=== PATIENT | male | born 1985 | race Caucasian/White ===

== ENCOUNTER 2023-09-26 11:32 | Inpatient (IN) ==
--- NOTE | 2023-09-26 11:46 | ED Triage Note ---
Date of Service September 26, 2023 History of Present Illness This patient was briefly evaluated while in triage. An abbreviated physical exam was performed. This patient is a 38-year-old Male who presents to the ED for evaluation of productive cough. Patient reports that he had pneumonia a little over a month ago, and was seen in our emergency department on 07/30/2023. The patient completed his course of antibiotics from his last visit. Physical Exam CONSTITUTIONAL: Healthy and well nourished. Patient does not appear toxic. RESPIRATORY: Patient has coarse rhonchi throughout all osorio. No wheezing. CARDIOVASCULAR: Regular rate and rhythm with no murmurs, rubs or gallops. INTEGUMENTARY: No rash or other significant dermatologic conditions noted. HEMATOLOGIC: No ecchymosis or petechiae. PSYCHIATRIC: Positive affect. NEUROLOGIC: No focal neurologic deficits noted. Initial orders for labs and / or imaging were placed and patient was placed in the waiting area until a bed is available. Please see further documentation for the full ED course.
[2023-09-26] MEDS ORDERED: SODIUM CHLORIDE 0.9% 1,000 ML IV SCH (12:00)
[2023-09-26] MEDS ORDERED: VANCOMYCIN CONSULT ACTIVE PRN (12:19)
[2023-09-26] MEDS ORDERED: PIPERACILLIN/TAZOBACTAM 4.5 GM in DEXTROSE 5% MINI-B 100 ML IV ONE (12:19)
[2023-09-26] MEDS ORDERED: VANCOMYCIN HCL 2,000 MG in SODIUM CHLORIDE 0.9% 500 ML IV ONE (12:19)
[2023-09-26 12:47] LABS: Hematocrit (blood only) 35.9 % (42.0-52.0); Hemoglobin 11.3 g/dl (14.0-18.0); Mean Corpuscular Hemoglobin 26.3 pg (25.0-34.0); Mean Corpuscular Hgb Conc 31.5 g/dL (32.0-36.0); Mean Corpuscular Volume 83.7 fL (80.0-100.0); Mean Platelet Volume 9.4 fL (9.4-12.4); Platelet Count 307 K/uL (130-400); RDW Standard Deviation 51.7 fL (36.4-46.3); Red Blood Count 4.29 M/uL (4.70-6.10)
[2023-09-26 12:56] LABS: Albumin Globulin Ratio 0.6 (0.9-2); Albumin Level 3.1 gm/dl (3.4-5.0); BUN Creatinine Ratio 10.5 (10-20); Bilirubin,Total 0.5 mg/dl (0.2-1.0); Calcium 8.7 mg/dl (8.6-10.3); Creatinine Clr Calc Pharmacy 209.1 ml/min; Est GFR (African American) 148.9 ml/min; Est GFR (Non-African American) 128.4 ml/min; Globulin 4.8 gm/dl (2.5-4.0); Potassium 3.4 mmol/L (3.5-5.1); Total Protein 7.9 gm/dl (6.0-8.3)
[2023-09-26] MEDS ORDERED: SODIUM CHLORIDE 0.9% 1,000 ML IV ONE (13:02)
[2023-09-26 13:03] LABS: Troponin I High Sensitivity 5.5 pg/ml (0-20)
[2023-09-26] MEDS ORDERED: OPTIRAY 320 125ml IV ONE (13:15)
[2023-09-26 13:17] LABS: Basophils # (auto) 0.05 K/uL (0.00-0.20); Basophils % (auto) 0.5 %; Eosinophils # (auto) 0.03 K/uL (0.00-0.50); Eosinophils % (auto) 0.3 %; Immature Granulocytes # (auto) 0.06 K/uL (0.01-0.20); Immature Granulocytes % (auto) 0.6 %; Lymphocytes # (auto) 1.56 K/uL (1.20-3.40); Lymphocytes % (auto) 16.8 %; Monocytes # (auto) 1.49 K/uL (0.11-0.59); Neutrophils # (auto) 6.11 K/uL (1.40-6.50); Neutrophils % (auto) 65.8 %
--- NOTE | 2023-09-26 13:22 | XRay Report ---
XR chest 2V PA/lateral HISTORY: Cough, pneumonia 2 mos ago COMPARISON: Chest 07/30/2023. FINDINGS: The right lung is clear. The heart is normal in size. Loculated gas and fluid collection se en within the periphery of the left mid to lower lung zone. This favors a moderate to large loculated hydropneumothorax/empyema. Left basilar consolidation is noted. This could represent a pneumonia or atelectasis from the loculated pleural collection. No acute fractures identified. IMPRESSION: Loculated gas and fluid collection seen within the periphery of the left mid to lower lung zone. This favors a moderate to large loculated hydropneumothorax/empyema. ACT 112: Negative or not required by law. Electronically signed by: Cecilio Linton M.D. 09/26/2023 1:21 PM
--- NOTE | 2023-09-26 13:33 | CT Scan Report ---
CHEST CTA for PULMONARY ARTERIES CT DOSE: 1067.14 mGy.cm HISTORY: Shortness of breath, tachy, left cavitary pneumonia? TECHNIQUE: Multiaxial CT images of the chest were performed following the intravenous administration of contrast to evaluate the pulmonary arteries. 3D/Maximal intensity projection images were also obta ined. Sagittal and coronal reformations were also reviewed. A dose lowering technique was utilized a dhering to the principles of ALARA. COMPARISON STUDY: Chest 09/26/2023. FINDINGS: No acute fractures within the chest. Mild anterior wedging at T11 is likely chronic. There is an old, healed right clavicle fracture. No bony destructive changes identified. There is a 2.2 cm cyst/nodule along the inferior aspect of the left thyroid lobe. This is best seen on image 245. Robina l esophagus. Limited views of the upper abdomen demonstrate a normal liver, spleen, and adrenal gland s. There is mild right mediastinal shift. The heart is normal in size. No pericardial effusion. No ri ght pleural effusion is. A few prominent mediastinal and left hilar lymph nodes. These remain subcent imeter in short axis diameter. These are likely reactive. Normal caliber thoracic aorta with no evide nce for a dissection. No filling defects within the pulmonary arteries to suggest a pulmonary embolus . Partial opacities of the left lower lobe bronchi. There is mild emphysema. There are tree-in-bud no dular opacities seen within the right middle lobe and right lower lobe consistent with an infectious bronchiolitis. There is consolidation within the base of the left lower lobe and lingula. This likely represents a combination of compressive atelectasis and a pneumonia. Loculated peripheral gas and fl uid collection within the mid to lower left pleural space. The left pleural lining is thickened. Ther efore, this is consistent with a loculated moderate to large empyema. There are additional smaller co mponents of loculated gas and fluid within the left upper pleural space also suspicious for an empyem a. This accounts for the mild right mediastinal shift. IMPRESSION: 1. Moderate to large loculated gas and fluid collection within the left pleural space which is highly suspicious for an empyema. 2. Consolidation within the base of the left lower lobe/lingula. This likely represents a combination of compressive atelectasis from the suspected empyema and a superimposed pneumonia. 3. Tree-in-bud nodular opacities within the right lung base consistent with a mild infectious bronchi olitis. 4. No evidence for a pulmonary embolus. 5. Mild right mediastinal shift from the left-sided empyema. 6. Additional findings as described above. ACT 112: Negative or not required by law. Electronically signed by: Cecilio Linton M.D. 09/26/2023 1:31 PM
[2023-09-26 13:41] LABS: Adenovirus PCR Not Detected (NotDetected); Bordetella parapertussis PCR Not Detected (NotDetected); Bordetella pertussis PCR Not Detected (NotDetected); Chlamydia pneumoniae PCR Not Detected (NotDetected); Coronavirus 229E PCR Not Detected (NotDetected); Coronavirus CoV-2 (COVID19)PCR Not Detected (NotDetected); Coronavirus HKU1 PCR Not Detected (NotDetected); Coronavirus NL63 PCR Not Detected (NotDetected); Coronavirus OC43PCR Not Detected (NotDetected); Human Metapneumovirus PCR Not Detected (NotDetected); Influenza A PCR Not Detected (NotDetected); Influenza B PCR Not Detected (NotDetected); Mycoplasma pneumoniae PCR Not Detected (NotDetected); Parainfluenza Virus 1 PCR Not Detected (NotDetected); Parainfluenza Virus 2 PCR Not Detected (NotDetected); Parainfluenza Virus 3 PCR Not Detected (NotDetected); Parainfluenza Virus 4 PCR Not Detected (NotDetected); Respiratory Syncytial VirusPCR Not Detected (NotDetected); Rhinovirus/Enterovirus PCR Not Detected (NotDetected)
--- NOTE | 2023-09-26 15:04 | History & Physical Report ---
Date of Service September 26, 2023 Assessment & Plan (1) Empyema: Plan: IV Zosyn Follow up sputum, pleural fluid and blood cultures Appreciate pulmonology management of chest tube (2) Smoker: Plan: Nicotine patch ordered Plan VTE Prophylaxis - deferred given chest tube just inserted Diet - regular Disposition - admit to med/tele Admission and Anticipated Discharge Date Admission Date: September 26, 2023 History of Present Illness Chief Complaint: Cough, shortness of breath Primary Care Provider: Anu Geiger MD Cheo [place] is a 38 year old male who presents to the ER with productive cough. He was recently seen in the ER on July 30 and diagnosed with pneumonia. He was treated with prednisone (5 day course) and albuterol inhaler as wheezing was noted on exam. Given doxycycline on discharge. He reports once finishing his antibiotics his symptoms came back the next day with worsening cough and shortness of breath on exertion. No chest pain, fever or chills. No nasal congestion or sinus pain. He is a current smoking with 1 pack/day. Patient initially seen in the ER while having chest tube inserted, reviewed and examined patient fully after chest tube insertion by pulmonology. Allergies Allergy/AdvReac Type Severity Reaction Status Date / Time No Known Allergies Allergy Verified 09/26/23 14:09 Home Medications Medication Instructions Recorded Confirmed Type albuterol sulfate 90 mcg/actuation 2 inha inhalation QID PRN 07/30/23 09/26/23 Rx aerosol inhaler shortness of breath or wheezing #1 inhaler ibuprofen 200 mg tablet 200 mg PO Q6H PRN Pain 09/26/23 09/26/23 History Past Med/Surg History Medical History Gout Surgical History No history of previous surgery Family History Denies family history of Ovarian cancer Prostate cancer Myocardial infarction Breast cancer Colorectal cancer Social History Smoking Status: Current every day smoker packs per day: 1.5; Hx Alcohol Use: No Hx Substance Use: Yes Last Used Substance: Days (ago) Preferred Language: Telugu Communication Ability: Effective Motivational Speaker Required: No Beliefs That Will Affect Care: None marital status: Single Current Living Situation: Alone current occupational status: employed Other Information That Helps Us Care for You: No Feels Safe at Home: Yes Safety Concerns: Feels Safe At This Time Dental Care, Regularly: No Seatbelt Use: sometimes Assistive Devices: None Review of Systems Review of Systems: All systems reviewed & are unremarkable except as noted in HPI & below Physical Exam Constitutional: WD/WN, vitals as above Eyes: + anicteric sclerae; normal pupil size ENMT: external ear and nose normal, oropharynx normal Neck: trachea midline, no thyromegaly Respiratory: normal respiratory effort; no respiratory distress Auscultation: + diminished lung sounds (right sided); no crackles and no wheezes Cardiovascular: RRR, no murmur, no edema Gastrointestinal (Abdomen): normal bowel sounds, soft, nontender, no hepatosplenomegaly Musculoskeletal: no cyanosis or clubbing, extremities motor strength 5/5 Skin: no rashes, warm and dry Neurologic: moves all extremities and awake; not confused Psychiatric: A+Ox3, euthymic affect Genitourinary: no CVA tenderness Results & Data Results & Data Vital Signs (Past 12 Hours) Vital Signs Temp Pulse Pulse Resp BP BP Pulse Ox 09/26/23 12:09 126 H 12 92 09/26/23 12:09 126 H 14 107/78 92 09/26/23 11:44 37.2 C 133 H 18 127/81 94 O2 Del Method 09/26/23 12:09 Room Air 09/26/23 12:09 Room Air 09/26/23 11:44 Room Air Laboratory Results Abnormal lab results 09/26/23 09/26/23 Range/Units 12:13 12:27 RBC 4.29 L (4.70-6.10) M/uL Hgb 11.3 L (14.0-18.0) g/dl Hct 35.9 L (42.0-52.0) % MCHC 31.5 L (32.0-36.0) g/dL RDW Std Deviation 51.7 H (36.4-46.3) fL RDW Coeff of [place] 17.0 H (11.5-14.5) % [place] # (Auto) 1.49 H (0.11-0.59) K/uL Sodium 132 L (136-145) mmol/L Potassium 3.4 L (3.5-5.1) mmol/L Chloride 97 L (98-107) mmol/L Creatinine 0.57 L (0.6-1.4) mg/dl Glucose 159 H (70-99(Fasting)) mg/dl Lactate 2.4 H* (0.4-2.0) mmol/L Albumin 3.1 L (3.4-5.0) gm/dl Globulin 4.8 H (2.5-4.0) gm/dl Albumin/Globulin Ratio 0.6 L (0.9-2) Diagnostic Findings XR chest 2V PA/lateral HISTORY: Cough, pneumonia 2 mos ago COMPARISON: Chest 07/30/2023. FINDINGS: The right lung is clear. The heart is normal in size. Loculated gas and fluid collection seen within the periphery of the left mid to lower lung zone. This favors a moderate to large loculated hydropneumothorax/empyema. Left basilar consolidation is noted. This could represent a pneumonia or atelectasis from the loculated pleural collection. No acute fractures identified. IMPRESSION: Loculated gas and fluid collection seen within the periphery of the left mid to lower lung zone. This favors a moderate to large loculated hydropneumothorax/empyema. CHEST CTA for PULMONARY ARTERIES CT DOSE: 1067.14 mGy.cm HISTORY: Shortness of breath, tachy, left cavitary pneumonia? TECHNIQUE: Multiaxial CT images of the chest were performed following the intravenous administration of contrast to evaluate the pulmonary arteries. 3D/ Maximal intensity projection images were also obtained. Sagittal and coronal reformations were also reviewed. A dose lowering technique was utilized adhering to the principles of ALARA. COMPARISON STUDY: Chest 09/26/2023. FINDINGS: No acute fractures within the chest. Mild anterior wedging at T11 is likely chronic. There is an old, healed right clavicle fracture. No bony destructive changes identified. There is a 2.2 cm cyst/nodule along the inferior aspect of the left thyroid lobe. This is best seen on image 245. Normal esophagus. Limited views of the upper abdomen demonstrate a normal liver, spleen, and adrenal glands. There is mild right mediastinal shift. The heart is normal in size. No pericardial effusion. No right pleural effusion is. A few prominent mediastinal and left hilar lymph nodes. These remain subcentimeter in short axis diameter. These are likely reactive. Normal caliber thoracic aorta with no evidence for a dissection. No filling defects within the pulmonary arteries to suggest a pulmonary embolus. Partial opacities of the left lower lobe bronchi. There is mild emphysema. There are tree-in-bud nodular opacities seen within the right middle lobe and right lower lobe consistent with an infectious bronchiolitis. There is consolidation within the base of the left lower lobe and lingula. This likely represents a combination of compressive atelectasis and a pneumonia. Loculated peripheral gas and fluid collection within the mid to lower left pleural space. The left pleural lining is thickened. Therefore, this is consistent with a loculated moderate to large e mpyema. There are additional smaller components of loculated gas and fluid within the left upper pleural space also suspicious for an empyema. This accounts for the mild right mediastinal shift. IMPRESSION: 1. Moderate to large loculated gas and fluid collection within the left pleural space which is highly suspicious for an empyema. 2. Consolidation within the base of the left lower lobe/lingula. This likely represents a combination of compressive atelectasis from the suspected empyema and a superimposed pneumonia. 3. Tree-in-bud nodular opacities within the right lung base consistent with a mild infectious bronchiolitis. 4. No evidence for a pulmonary embolus. 5. Mild right mediastinal shift from the left-sided empyema. 6. Additional findings as described above. Medications Administered ER Medications Given: Normal saline 1000 ml bolus Zosyn 4.5g IV Vancomycin 2000mg IV Normal saline 1000ml bolus ECG Rate (beats per minute): 131 Rhythm: sinus tachycardia Findings: + T-wave inversion (Lateral) Comparison ECG Date: from (July 30, 2023) Change: the following changes noted (TWI is new) Code Status & VTE Plan Code Status Full VTE Prophylaxis Plan VTE Prophylaxis will be ordered: No PG Care Time/CCT Total # of Minutes Spent Total Time Spent with Patient: Total time spent is greater than 50% in coordination of care (as documented) at patient's floor/unit and/or counseling patient: Coding Level of Care Code 13031 INT INP/OBS CARE 2/55MIN Diagnoses Empyema J86.9 Smoker F17.200
[2023-09-26] MEDS ORDERED: MIDAZOLAM HCL 1 MG/ML 2ML VIAL IV STA (15:06)
[2023-09-26] MEDS ORDERED: MoRPHine SULFATE 2 MG/ML CARP IV STA (15:06)
[2023-09-26] MEDS ORDERED: MoRPHine SULFATE 2 MG/ML CARP ONE (15:10)
[2023-09-26] MEDS ORDERED: MIDAZOLAM HCL 1 MG/ML 2ML VIAL ONE (15:10)
[2023-09-26 15:21] LABS: C Reactive Protein 10.51 mg/dl (0-0.5)
[2023-09-26] MEDS ORDERED: SODIUM CHLORIDE 0.9% 500 ML IV ONE (15:48)
--- NOTE | 2023-09-26 15:57 | Emergency Department Note ---
Impression & Plan Empyema, Sepsis ED Provider Note NAME: LAUREN ACEVEDO AGE: 38 SEX: Male INFORMANT: Patient ED PROVIDER(S): Froy Bustillo MD CHIEF COMPLAINT: Cough PLAN: Disposition: Admitted Outpatient prescription management: none Referral: None MEDICAL DECISION MAKING: Patient presented because of cough. Work-up revealed an air-fluid level on chest x-ray. This was concerning for possible cavitary lesion. The patient was placed in respiratory precautions. Blood work, cultures, and other laboratory testing ordered. Patient was given fluid boluses and started empirically on Zosyn and vancomycin. Patient had fluid calculation based on ideal body weight and did receive 2.5 L patient did have a sputum specimen sent. CT imaging was ordered. CT imaging appeared to reveal this to be pleural-based. I did consult with pulmonary critical care, Dr. Bharat chun. She did evaluate the patient in the emergency department after CT imaging and placed a chest tube. Patient initially drained approximate 500 mL of purulent fluid. The patient did have a moderate anemia with a hemoglobin that dropped from 15-11. Chemistry panel was unremarkable. He did have a negative white blood cell count. The patient's ECG showed a sinus tachycardia with lateral T wave inversions. Troponin negative. Patient's CRP is elevated. Procalcitonin is within normal limits. Patient's bio fire testing is negative. Further management in the hospital will be necessary. [facility] Dr[facility] Kulkarni. Patient was discussed and he will be admitted for further management. Care/management discussed with: Discussed with sponsorship manager. Level of care consideration(s): After review of the information above and other included data, I feel the patient requires escalation of care to admission Triage Nursing notes: reviewed and agree them. Vital Signs: reviewed and remarkable for no significant abnormalities Additional History obtained from: Patient's mother regarding his persistent pulmonary symptoms. Chronic Medical/Social Conditions affecting care: none Prior/ Outside/ External records reviewed: none Differential Diagnosis: Reactive airway disease, pneumonia, pneumothorax, COPD, CHF, infections, cardiac ischemia, pulmonary embolism, musculoskeletal, gastrointestinal, as well as other pathologies. Diagnostics, independently interpreted by me: ECG: Twelve-lead ECG reveals sinus tachycardia at 131 bpm. Septal Q wave. Lateral T wave inversion. When compared to prior ECG from July this year the T wave inversions are new. Cardiac Monitoring: Cardiac monitoring ordered by me: The patient was placed on continuous cardiac monitoring and observed. It revealed sinus tachycardia at 120 bpm. Medical decision rules: none Imaging studies: Chest imaging reveals a left sided cavitary lesion with air- fluid level. CT imaging of the chest reveals findings consistent with a pleural-based layering fluid collection concerning for empyema. Patient may have infiltrate versus atelectasis secondary to compression as well HPI: 38 year old Male arrives for evaluation of cough. Patient was treated for pneumonia back in July of this year. He stated when he was on the doxycycline he was feeling somewhat better and then symptoms persisted. They seem to get worse over the last week or 2.. Patient has a productive cough. He notes some difficulty sleeping and feels somewhat short of breath. Patient denies any travel or exposure to anyone ill. No prior history of the same. Patient does smoke. He is also noted some fevers and chills pt denies LOC, headache, neck pain, chest pain, nausea, vomiting, abdominal pain, back pain, melena, hematochezia, urinary symptoms, numbness, weakness, lymphadenopathy, rash, or other complaints. PAST MEDICAL HISTORY: See Below, pneumonia PAST SURGICAL HISTORY: See Below, SOCIAL HISTORY: See Below, smoker HOME MEDICATIONS: See Below ALLERGIES: See Below VITALS: See Below PHYSICAL EXAMINATION: GENERAL: Awake, alert, well-appearing, in no distress HENT: Normocephalic, atraumatic. Oropharynx unremarkable. EYES: Normal conjunctiva. Sclera non-icteric. NECK: Inspection normal. Non-tender. Supple. No nuchal rigidity. FROM. No masses. RESPIRATORY: Clear to auscultation on the right without any wheezes rales. Auscultation on the left side revealed diminished breath sounds mcfp up. Few scattered crackles noted. Slightly increased respiratory effort. CARDIAC: Normal rate. Normal rhythm. No murmurs. No rubs. Extremities warm and well perfused. Pulses equal. No JVD. GI: Soft, non-distended. No tenderness to palpation. No rebound or guarding. No masses. RECTAL: Deferred. MUSCULOSKELETAL: Atraumatic. Chest examination reveals no tenderness. The back is symmetrical on inspection without obvious abnormality. There is no CVA tenderness to palpation. No joint edema. LOWER EXTREMITIES: Calves are equal size bilaterally and non-tender. No edema. Chronic venous discoloration. NEURO: Normal sensorium. No sensory or motor deficits noted. SKIN: No rash or jaundice noted. PROCEDURES: none CRITICAL CARE: I have personally spent 45 minutes of critical care time in the direct management of this patient. This includes bedside care, interpretation of diagnostic studies, and testing, discussion with consultants, patient, and family members, and other required patient management activities. These minutes are in excess of all separately billable procedures. OBSERVATION NOTE: none Past Med/Surg History Medical History (Updated 09/26/23 @ 15:57 by Froy Bustillo MD) Gout Surgical History No history of previous surgery Family History Denies family history of Ovarian cancer Prostate cancer Myocardial infarction Breast cancer Colorectal cancer Social History Smoking Status: Current every day smoker packs per day: 1.5; Hx Alcohol Use: Yes Hx Substance Use: No Preferred Language: Mauritanian marital status: Single Current Living Situation: Alone current occupational status: employed Feels Safe at Home: Yes Dental Care, Regularly: No Seatbelt Use: sometimes Allergies Allergies Allergy/AdvReac Type Severity Reaction Status Date / Time No Known Allergies Allergy Verified 09/26/23 14:09 Home Meds Home Medications Medication Instructions Recorded Confirmed ibuprofen 200 mg tablet 200 mg PO Q6H PRN Pain 09/26/23 09/26/23 Previous Rx's Medication Instructions Recorded albuterol sulfate 90 mcg/actuation 2 inha inhalation QID PRN 07/30/23 aerosol inhaler shortness of breath or wheezing #1 inhaler Results & Data (ED) Vital Signs Vital Signs - 24 hr 09/26/23 11:44 09/26/23 12:09 09/26/23 12:09 Temperature 37.2 C Temperature Source Temporal Artery Scan Pulse Rate 133 H 126 H Pulse Rate [Right Finger] 126 H Respiratory Rate 18 14 12 Respiratory Effort / Characteristics Non-Labored Spontaneous Respiratory Depth Normal Respiratory Pattern Regular Blood Pressure 127/81 Blood Pressure [Right Arm] 107/78 Blood Pressure Mean 96 Blood Pressure Mean [Right Arm] 87 Blood Pressure Position Sitting Pulse Oximetry 94 92 92 Oxygen Delivery Method Room Air Room Air Room Air Sepsis Recent Fever Within 48 Hours No Sepsis New/Unexplained Change in Mental Status N/A Sepsis Action Taken by Nursing No Action Required Laboratory Data 09/26/23 12:13 09/26/23 12:13 Lab Results 09/26/23 09/26/23 09/26/23 Range/Units 12:13 12:22 12:27 WBC 9.30 (4.8-10.8) K/ul RBC 4.29 L (4.70-6.10) M/uL Hgb 11.3 L (14.0-18.0) g/dl Hct 35.9 L (42.0-52.0) % MCV 83.7 (80.0-100.0) fL MCH 26.3 (25.0-34.0) pg MCHC 31.5 L (32.0-36.0) g/dL RDW Std Deviation 51.7 H (36.4-46.3) fL RDW Coeff of Logan 17.0 H (11.5-14.5) % Plt Count 307 (130-400) K/uL MPV 9.4 (9.4-12.4) fL Immature Gran % (Auto) 0.6 % Neut % (Auto) 65.8 % Lymph % (Auto) 16.8 % [place] % (Auto) 16.0 % Eos % (Auto) 0.3 % Baso % (Auto) 0.5 % Neut # (Auto) 6.11 (1.40-6.50) K/uL Lymph # (Auto) 1.56 (1.20-3.40) K/uL [place] # (Auto) 1.49 H (0.11-0.59) K/uL Eos # (Auto) 0.03 (0.00-0.50) K/uL Baso # (Auto) 0.05 (0.00-0.20) K/uL Immature Gran # (Auto) 0.06 (0.01-0.20) K/uL ESR 96 H (0-15) mm/hr Sodium 132 L (136-145) mmol/L Potassium 3.4 L (3.5-5.1) mmol/L Chloride 97 L (98-107) mmol/L Carbon Dioxide 26 (21-32) mmol/L Anion Gap 9 (3-11) BUN 6 (6-23) mg/dl Creatinine 0.57 L (0.6-1.4) mg/dl Est Cr Clr Drug Dosing 209.1 ml/min Est GFR ( Amer) 148.9 ml/min Est GFR (Non-Af Amer) 128.4 ml/min BUN/Creatinine Ratio 10.5 (10-20) Glucose 159 H (70-99(Fasting)) mg/dl Lactate 2.4 H* (0.4-2.0) mmol/L Calcium 8.7 (8.6-10.3) mg/dl Total Bilirubin 0.5 (0.2-1.0) mg/dl AST 17 (13-39) U/L ALT 12 (7-52) U/L Alkaline Phosphatase 85 (34-104) U/L Lactate Dehydrogenase 166 (86-244) U/L Troponin I High Sens 5.5 (0-20) pg/ml C-Reactive Protein 10.51 H (0-0.5) mg/dl Total Protein 7.9 (6.0-8.3) gm/dl Albumin 3.1 L (3.4-5.0) gm/dl Globulin 4.8 H (2.5-4.0) gm/dl Albumin/Globulin Ratio 0.6 L (0.9-2) Procalcitonin 0.07 (0-0.5) ng/ml Pleural pH (7.3-7.4) Pleural Total Protein gm/dl Pleural LDH U/L Pleural Glucose mg/dl Adenovirus (PCR) Not Detected (NotDetected) B. pertussis DNA (PCR) Not Detected (NotDetected) B.parapertussis DNA PCR Not Detected (NotDetected) C. pneumoniae DNA (PCR) Not Detected (NotDetected) Coronavirus OC43 (PCR) Not Detected (NotDetected) Coronavirus HKU1 (PCR) Not Detected (NotDetected) Coronavirus 229E (PCR) Not Detected (NotDetected) SARS-CoV-2 (PCR) Not Detected (NotDetected) Coronavirus NL63 (PCR) Not Detected (NotDetected) Human Metapneumovir PCR Not Detected (NotDetected) Influenza Type A (PCR) Not Detected (NotDetected) Influenza Type B (PCR) Not Detected (NotDetected) M. pneumoniae (PCR) Not Detected (NotDetected) Parainfluenza 1 (PCR) Not Detected (NotDetected) Parainfluenza 2 (PCR) Not Detected (NotDetected) Parainfluenza 3 (PCR) Not Detected (NotDetected) Parainfluenza 4 (PCR) Not Detected (NotDetected) RSV (PCR) Not Detected (NotDetected) Entero/Rhino (PCR) Not Detected (NotDetected) 09/26/23 09/26/23 Range/Units 13:40 14:10 WBC (4.8-10.8) K/ul RBC (4.70-6.10) M/uL Hgb (14.0-18.0) g/dl Hct (42.0-52.0) % MCV (80.0-100.0) fL MCH (25.0-34.0) pg MCHC (32.0-36.0) g/dL RDW Std Deviation (36.4-46.3) fL RDW Coeff of Logan (11.5-14.5) % Plt Count (130-400) K/uL MPV (9.4-12.4) fL Immature Gran % (Auto) % Neut % (Auto) % Lymph % (Auto) % [place] % (Auto) % Eos % (Auto) % Baso % (Auto) % Neut # (Auto) (1.40-6.50) K/uL Lymph # (Auto) (1.20-3.40) K/uL [place] # (Auto) (0.11-0.59) K/uL Eos # (Auto) (0.00-0.50) K/uL Baso # (Auto) (0.00-0.20) K/uL Immature Gran # (Auto) (0.01-0.20) K/uL ESR (0-15) mm/hr Sodium (136-145) mmol/L Potassium (3.5-5.1) mmol/L Chloride (98-107) mmol/L Carbon Dioxide (21-32) mmol/L Anion Gap (3-11) BUN (6-23) mg/dl Creatinine (0.6-1.4) mg/dl Est Cr Clr Drug Dosing ml/min Est GFR ( Amer) ml/min Est GFR (Non-Af Amer) ml/min BUN/Creatinine Ratio (10-20) Glucose (70-99(Fasting)) mg/dl Lactate 1.1 (0.4-2.0) mmol/L Calcium (8.6-10.3) mg/dl Total Bilirubin (0.2-1.0) mg/dl AST (13-39) U/L ALT (7-52) U/L Alkaline Phosphatase (34-104) U/L Lactate Dehydrogenase (86-244) U/L Troponin I High Sens (0-20) pg/ml C-Reactive Protein (0-0.5) mg/dl Total Protein (6.0-8.3) gm/dl Albumin (3.4-5.0) gm/dl Globulin (2.5-4.0) gm/dl Albumin/Globulin Ratio (0.9-2) Procalcitonin (0-0.5) ng/ml Pleural pH (7.3-7.4) Pleural Total Protein < 3.0 gm/dl Pleural LDH > 63562 U/L Pleural Glucose < 10 mg/dl Adenovirus (PCR) (NotDetected) B. pertussis DNA (PCR) (NotDetected) B.parapertussis DNA PCR (NotDetected) C. pneumoniae DNA (PCR) (NotDetected) Coronavirus OC43 (PCR) (NotDetected) Coronavirus HKU1 (PCR) (NotDetected) Coronavirus 229E (PCR) (NotDetected) SARS-CoV-2 (PCR) (NotDetected) Coronavirus NL63 (PCR) (NotDetected) Human Metapneumovir PCR (NotDetected) Influenza Type A (PCR) (NotDetected) Influenza Type B (PCR) (NotDetected) M. pneumoniae (PCR) (NotDetected) Parainfluenza 1 (PCR) (NotDetected) Parainfluenza 2 (PCR) (NotDetected) Parainfluenza 3 (PCR) (NotDetected) Parainfluenza 4 (PCR) (NotDetected) RSV (PCR) (NotDetected) Entero/Rhino (PCR) (NotDetected) Administered Medications Discontinued Medications Fentanyl Citrate (Fentanyl Citrate Pf 100 Mcg/2 Ml Vial) 50 mcg IV NOW STA Stop: 09/26/23 16:37 Last Admin: 09/26/23 16:45 Dose: 50 mcg Documented By: LIO Sodium Chloride (Nss) 1,000 mls @ 999 mls/hr IV .Q1H1M JAVDA Stop: 09/26/23 13:00 Last Infusion: 09/26/23 13:26 Dose: Infused Documented By: Admin: 09/26/23 12:13 Dose: 999 mls/hr Documented By: ARCHIE Piperacillin Sod/Tazobactam (Sod 4.5 gm/ Dextrose) 100 mls @ 200 mls/hr IV NOW ONE; Protocol Stop: 09/26/23 12:48 Last Infusion: 09/26/23 13:57 Dose: Infused Documented By: Admin: 09/26/23 13:26 Dose: 200 mls/hr Documented By: JUSTIN Vancomycin HCl 2,000 mg/ (Sodium Chloride) 540 mls @ 200 mls/hr IV NOW ONE Stop: 09/26/23 15:00 Last Infusion: 09/26/23 17:55 Dose: Infused Documented By: [employer]PER[employer] Admin: 09/26/23 14:38 Dose: 200 mls/hr Documented By: JUSTIN Sodium Chloride (Nss) 1,000 mls @ 999 mls/hr IV .Q1H1M ONE Stop: 09/26/23 14:02 Last Infusion: 09/26/23 14:38 Dose: Infused Documented By: Admin: 09/26/23 13:26 Dose: 999 mls/hr Documented By: JUSTIN Sodium Chloride (Nss) 500 mls @ 999 mls/hr IV .Q31M ONE Stop: 09/26/23 16:18 Last Infusion: 09/26/23 17:02 Dose: Infused Documented By: [employer]PER[employer] Admin: 09/26/23 16:26 Dose: 999 mls/hr Documented By: LIO Ioversol (Optiray 320 125ml) 119 ml IV ONCE ONE Stop: 09/26/23 13:16 Last Admin: 09/26/23 13:15 Dose: 119 ml Documented By: DEVYN Midazolam HCl (Midazolam Hcl 1 Mg/Ml 2ml Vial) 1 mg IV NOW STA Stop: 09/26/23 15:07 Last Admin: 09/26/23 15:18 Dose: Not Given Documented By: ROSSY Midazolam HCl (Midazolam Hcl 1 Mg/Ml 2ml Vial) Confirm Administered Dose 2 mg .ROUTE .STK-MED ONE Stop: 09/26/23 15:11 Last Admin: 09/26/23 15:13 Dose: 1 mg Documented By: ROSSY Morphine Sulfate (Morphine Sulfate 2 Mg/Ml Carp) 2 mg IV NOW STA Stop: 09/26/23 15:07 Last Admin: 09/26/23 15:18 Dose: Not Given Documented By: ROSSY Morphine Sulfate (Morphine Sulfate 2 Mg/Ml Carp) Confirm Administered Dose 2 mg .ROUTE .STK-MED ONE Stop: 09/26/23 15:11 Last Admin: 09/26/23 15:13 Dose: 2 mg Documented By: ROSSY Imaging Data Radiologist's Impression: Chest X-Ray 09/26/23 11:46 XR chest 2V PA/lateral HISTORY: Cough, pneumonia 2 mos ago COMPARISON: Chest 07/30/2023. FINDINGS: The right lung is clear. The heart is normal in size. Loculated gas and fluid collection seen within the periphery of the left mid to lower lung zone. This favors a moderate to large loculated hydropneumothorax/empyema. Left basilar consolidation is noted. This could represent a pneumonia or atelectasis from the loculated pleural collection. No acute fractures identified. IMPRESSION: Loculated gas and fluid collection seen within the periphery of the left mid to lower lung zone. This favors a moderate to large loculated hydropneumothorax/empyema. ACT 112: Negative or not required by law. Electronically signed by: Cecilio Linton M.D. 09/26/2023 1:21 PM Chest CTA 09/26/23 12:16 CHEST CTA for PULMONARY ARTERIES CT DOSE: 1067.14 mGy.cm HISTORY: Shortness of breath, tachy, left cavitary pneumonia? TECHNIQUE: Multiaxial CT images of the chest were performed following the intravenous administration of contrast to evaluate the pulmonary arteries. 3D/Maximal intensity projection images were also obtained. Sagittal and coronal reformations were also reviewed. A dose lowering technique was utilized adhering to the principles of ALARA. COMPARISON STUDY: Chest 09/26/2023. FINDINGS: No acute fractures within the chest. Mild anterior wedging at T11 is likely chronic. There is an old, healed right clavicle fracture. No bony destructive changes identified. There is a 2.2 cm cyst/nodule along the inferior aspect of the left thyroid lobe. This is best seen on image 245. Normal esophagus. Limited views of the upper abdomen demonstrate a normal liver, spleen, and adrenal glands. There is mild right mediastinal shift. The heart is normal in size. No pericardial effusion. No right pleural effusion is. A few prominent mediastinal and left hilar lymph nodes. These remain subcentimeter in short axis diameter. These are likely reactive. Normal caliber thoracic aorta with no evidence for a dissection. No filling defects within the pulmonary arteries to suggest a pulmonary embolus. Partial opacities of the left lower lobe bronchi. There is mild emphysema. There are tree-in-bud nodular opacities seen within the right middle lobe and right lower lobe consistent with an infectious bronchiolitis. There is consolidation within the base of the left lower lobe and lingula. This likely represents a combination of compressive atelectasis and a pneumonia. Loculated peripheral gas and fluid collection within the mid to lower left pleural space. The left pleural lining is thickened. Therefore, this is consistent with a loculated moderate to large empyema. There are additional smaller components of loculated gas and fluid within the left upper pleural space also suspicious for an empyema. This accounts for the mild right mediastinal shift. IMPRESSION: 1. Moderate to large loculated gas and fluid collection within the left pleural space which is highly suspicious for an empyema. 2. Consolidation within the base of the left lower lobe/lingula. This likely represents a combination of compressive atelectasis from the suspected empyema and a superimposed pneumonia. 3. Tree-in-bud nodular opacities within the right lung base consistent with a mild infectious bronchiolitis. 4. No evidence for a pulmonary embolus. 5. Mild right mediastinal shift from the left-sided empyema. 6. Additional findings as described above. ACT 112: Negative or not required by law. Electronically signed by: Cecilio Linton M.D. 09/26/2023 1:31 PM Discharge Plan Visit Data Chief Complaint: Cough Stated Complaint: PNEUMONIA A MONTH AGO, ONSET COUGH, CHECK UP ED Provider: Froy Bustillo Discharge Problem: Empyema, Sepsis Discharge Instructions Interventions: ED Discharge Assessment Last Done: 09/26/23 17:30
[2023-09-26] MEDS ORDERED: fentaNYL citrate PF 100 MCG/2 ML VIAL IV STA (16:36)
[2023-09-26 16:48] LABS: Glucose Pleural Fluid < 10 mg/dl; Total Protein Pleural Fluid < 3.0 gm/dl
--- NOTE | 2023-09-26 16:50 | XRay Report ---
XR chest 1V portable CLINICAL HISTORY: left chest tube COMPARISON STUDY: Chest radiograph and chest CT September 26, 2023. FINDINGS: Interval placement of a left chest tube is noted. The left pleural effusion/empyema has dec reased in size since prior examination. Pleural gas is again noted. Left mid and lower lung airspace opacity is present. There is no right pneumothorax. There is no evidence for pulmonary edema. IMPRESSION: Interval placement of a left chest tube with decrease in the left pleural effusion/empye ma shown on prior chest radiograph and chest CT. Redemonstration of left pleural gas. ACT 112: Negative or not required by law. Electronically signed by: Dimitri Irwin M.D. 09/26/2023 4:49 PM
--- NOTE | 2023-09-26 17:12 | Pulmonary Consultation ---
Date of Consultation September 26, 2023 Assessment & Plan (1) Empyema: (2) Smoker: Plan 38 year old male smoker, ETOH use who presents with cough. Treated for pneumonia 2 weeks ago with doxycycline. Found to have left empyema. s/p left chest tube. suspect staph or strep. Agree with empiric vanc and zoxyn. Follow up cultures. check strep urine antigen. post chest tube CXR showed left pneumothorax, suspect entrapped lung. Check follow up chest CT. History of Present Illness History of Present Illness 38 year old male without significant past medical history who presents to the ER with productive cough. He was recently seen in the ER on July 30 and diagnosed with pneumonia, treated with doxycycline, prendisone and albuterol. CXR and Chest CT showed loculated left empyema. He is an active smoker. works in construction. Denies pulmonary issues. Denies recent travel or sick contact. Denies vaping or drug use. (+)etoh use. Allergies Allergy/AdvReac Type Severity Reaction Status Date / Time No Known Allergies Allergy Verified 09/26/23 14:09 Home Medications Medication Instructions Recorded Confirmed Type albuterol sulfate 90 mcg/actuation 2 inha inhalation QID PRN 07/30/23 09/26/23 Rx aerosol inhaler shortness of breath or wheezing #1 inhaler ibuprofen 200 mg tablet 200 mg PO Q6H PRN Pain 09/26/23 09/26/23 History Patient History Medical History (Updated 09/26/23 @ 15:57 by Froy Bustillo MD) Gout Surgical History No history of previous surgery Family History Denies family history of Ovarian cancer Prostate cancer Myocardial infarction Breast cancer Colorectal cancer Social History Smoking Status: Current every day smoker packs per day: 1.5; Hx Alcohol Use: Yes Hx Substance Use: No Preferred Language: Albanian marital status: Single Current Living Situation: Alone current occupational status: employed Feels Safe at Home: Yes Dental Care, Regularly: No Seatbelt Use: sometimes Physical Exam Constitutional: well developed and comfortable Respiratory: normal respiratory effort decreased breath sounds left side. Cardiovascular: Rate/Rhythm: regular rate and regular rhythm Gastrointestinal (Abdomen): normal bowel sounds, soft, nontender, no hepatosplenomegaly Musculoskeletal: no cyanosis or clubbing, extremities motor strength 5/5 Skin: no rashes, warm and dry Neurologic: PERRL, EOMI, accommodation nl, no face palsy, no dysarthria Results & Data Results & Data Vital Signs (Past 12 Hours) Vital Signs Temp Pulse Pulse Resp BP BP Pulse Ox 09/26/23 12:09 126 H 12 92 09/26/23 12:09 126 H 14 107/78 92 09/26/23 11:44 37.2 C 133 H 18 127/81 94 O2 Del Method 09/26/23 12:09 Room Air 09/26/23 12:09 Room Air 09/26/23 11:44 Room Air PG Care Time/CCT Total # of Minutes Spent Total Time Spent with Patient: Total time spent is greater than 50% in coordination of care (as documented) at patient's floor/unit and/or counseling patient: Coding Level of Care Code 33452 INT INP/OBS CARE 2/55MIN Diagnoses Empyema J86.9 Smoker F17.200
--- NOTE | 2023-09-26 17:19 | Procedure Note ---
Procedure Note Date of Service September 26, 2023 Note Left chest tube placement under ultrasound guidance Indication: left empyema A time out was performed and after the chest CT was reviewed, the appropriate side was confirmed and marked. My hands were washed immediately prior to the procedure. I wore a surgical cap, mask, gown and sterile gloves throughout the procedure. Left chest was examined using ultrasound to identify optimal location for CT placement. The patient was prepped and draped in a sterile manner using chlorhexidine scrub after the patient was positioned in the usual fashion. A total of 5 ml of 1% lidocaine was used to anesthesize the skin, subcutaneous tissue, superior aspect of the rib periosteum and parietal pleura. A finder needle was advanced following the same route until yellow pus was withdrawn. A guidewire was passed through the needle and the needle was removed. A scalpel was used to make a small skin incision at guidewire entry site. The skin and subcutaneous tissue was then serially dialted using two dilators. The dilators were removed. A 24 Citizen Of [place] chest tube was then inserted over the guidewire and the guidewire was removed. The chest tube was directed caudally and inserted easily. The chest tube was sutured to the skin at the insertion site, and connected securely with tape to a pleurovac. Approximately 800cc of flurescent green, foul smelling pus was immediately removed. A sterile occlusive dressing was placed over the insertion site. No immediate complications were noted. A post-procedure chest x-ray showed appropriate placement. Coding
[2023-09-26 17:22] LABS: LDH Pleural Fluid > 12000 U/L
[2023-09-26] MEDS ORDERED: ACETAMINOPHEN 325 MG TAB PO PRN (17:44)
[2023-09-26] MEDS ORDERED: HYDROmorphone INJ 0.5 MG/0.5 ML SYR IV PRN ×2 (19:09→21:03)
[2023-09-26] MEDS: PIPERACILLIN/TAZOBACTAM 4.5 GM in DEXTROSE 5% MINI-B 100 ML IV SCH (20:22)
--- NOTE | 2023-09-26 21:06 | CT Scan Report ---
CT OF THE CHEST WITHOUT IV CONTRAST CLINICAL HISTORY: Left empyema. COMPARISON STUDY: Chest CT and chest radiograph performed earlier today. CT DOSE: 785.68 mGy.cm TECHNIQUE: Axial images of the chest were obtained without IV contrast. Images were reviewed in the axial, sagittal, and coronal planes. IV contrast was not administered for this examination. Automat ed exposure control was utilized for the study. A dose lowering technique was utilized adhering to t he principles of ALARA. FINDINGS: Interval placement of a left chest tube is noted. Mild stranding and a small amount of gas within the left chest wall is expected given recent tube placement. The previously described left pl eural collection suggestive of an empyema has significantly decreased in size. The amount of fluid underwood s markedly decreased. A small amount of residual pleural fluid is noted. The amount of pleural gas underwood s increased. Pleural thickening is again noted. The tube is well-positioned. Extensive left lower lob e airspace opacity with volume loss is noted. This predominantly reflects atelectasis. A 4.9 cm irreg ular opacity within the apicoposterior segment of the left upper lobe and the superior segment of the left lower lobe is noted. This extends across the fissure and contains fluid and a small amount of g as. This is similar to prior CT. Scattered alveolar opacities within the right middle and right lower lobes are present. These are also unchanged. Size of the heart is normal. There is no pericardial ef fusion. Several prominent mediastinal lymph nodes are noted. None are pathologically enlarged. Contra st within the collecting systems is from recent contrast-enhanced CT. Visualized portions of the uppe r abdomen are unremarkable. IMPRESSION: 1. Interval placement of a well-positioned left-sided chest tube with significant decrease in size of the previously described left empyema. Small amount of residual pleural fluid. Increase in pleural g as, likely related to inability of left lower lobe to expand. Persistent extensive left lower lobe op acity. This probably reflects atelectasis. 2. 4.9 cm irregular opacity extending across the fissure, involving the apicoposterior segment of the left upper lobe and superior segment of the left lower lobe. This contains fluid and a small amount of gas. This favors small residual loculated empyema. 3. Scattered alveolar opacities within the right lower lobe and right middle lobe consistent with an infectious process. ACT 112: Negative or not required by law. Electronically signed by: Dimitri Irwin M.D. 09/26/2023 9:04 PM
[2023-09-26] MEDS ORDERED: NICOTINE 14 MG/24 HR PATCH TD STA (22:23)
[2023-09-27] MEDS: HYDROmorphone INJ 0.5 MG/0.5 ML SYR IV PRN ×2 (00:42→07:48)
[2023-09-27] MEDS: PIPERACILLIN/TAZOBACTAM 4.5 GM in DEXTROSE 5% MINI-B 100 ML IV SCH ×3 (03:16→18:28)
--- NOTE | 2023-09-27 08:01 | Hospitalist Progress Note ---
Date of Service September 27, 2023 Assessment & Plan (1) Empyema: Plan: Plan to continue Zosyn,vancomycin Follow up sputum, pleural fluid and blood cultures Plan for trial of trial of intrapleural fibrinolytics, if fails would need to consider transfer for thoracic surgery consult Appreciate pulmonology management of chest tube - Pain control with scheduled Tylenol, prn Dilaudid, prn Toradol (2) Smoker: Plan: Nicotine patch ordered Plan VTE Prophylaxis - deferred given chest tube just inserted Diet - regular Admission and Anticipated Discharge Date Admission Date: September 26, 2023 Supervising Physician Co-Signing Physician Notes I personally examined the patient and verified all skelton points of history and exam, discussed case, and agree with decision making with Dr Slade Chest tube somewhat painful. Pain meds helped for a few hours, he was able to fall asleep, but now they definitely appear to have worn off. Pulmonary input greatly appreciated. Vitals noted, in general he is awake and alert pleasant no distress. HEENT normocephalic atraumatic mucous membranes moist. Left-sided chest tube noted. CT chest noted. Empyemabroad antibiotics and chest tube drainage, mist 2 protocol. Follow closely. Escalate pain control. Subjective Pt seen at bedside this morning in the ED. Intermittent pain around chest tube site, otherwise no complaints. Review of Systems Review of Systems: As per above Physical Exam Physical Exam: Constitutional: well-appearing, no acute distress HEENT: NCAT, no conjunctival injection CV: regular rhythm, no murmur appreciated, extremities well-perfused, no LE edema Resp: no increased work of breathing. Decreased breath sounds on the left side GI: soft, nondistended, nontender, BS normoactive MSK: no gross deformities appreciated Skin: warm, dry, no rash appreciated Neuro: alert, oriented, no focal neurologic deficit appreciated Results & Data Results & Data Vital Signs (Past 12 Hours) Vital Signs Pulse Resp BP Pulse Ox O2 Del Method O2 Flow Rate 09/27/23 07:53 97 H 09/27/23 07:00 90 26 H 93 Nasal Cannula 2 09/27/23 07:00 115/70 09/27/23 06:30 78 97 Nasal Cannula 2 09/27/23 06:30 111/70 09/27/23 04:10 80 09/27/23 04:00 96/62 L 09/27/23 04:00 82 26 H 97 Nasal Cannula 2 09/27/23 03:30 87 22 97 Nasal Cannula 2 09/27/23 03:30 112/63 09/27/23 03:00 87 26 H 96 Nasal Cannula 2 09/27/23 03:00 107/65 09/27/23 01:30 108/67 09/27/23 01:30 90 29 H 96 Nasal Cannula 2 09/27/23 01:00 109/68 09/27/23 01:00 97 H 26 H 96 Nasal Cannula 2 09/27/23 00:54 Nasal Cannula 2 09/27/23 00:30 118/70 09/27/23 00:30 96 H 27 H 93 Nasal Cannula 2 09/26/23 23:00 105 H 31 H 126/84 93 Nasal Cannula 2 09/26/23 22:50 100 H 34 H 95 09/26/23 22:40 100 H 30 H 94 09/26/23 22:30 99 H 31 H 115/68 94 Nasal Cannula 2 09/26/23 22:20 99 H 31 H 93 Nasal Cannula 2 09/26/23 22:10 100 H 24 94 Nasal Cannula 2 09/26/23 22:00 100 H 21 116/73 94 Nasal Cannula 2 09/26/23 21:50 101 H 34 H 94 Nasal Cannula 2 09/26/23 21:40 102 H 26 H 95 Nasal Cannula 2 09/26/23 21:30 102 H 31 H 09/26/23 21:30 124/80 09/26/23 21:20 101 H 29 H 94 Nasal Cannula 2 09/26/23 21:10 101 H 30 H 94 Nasal Cannula 2 09/26/23 21:00 103 H 31 H 106/78 93 Nasal Cannula 2 09/26/23 20:50 104 H 29 H 93 Nasal Cannula 2 09/26/23 20:40 104 H 27 H 09/26/23 20:30 101 H 29 H 93 Nasal Cannula 2 09/26/23 20:20 106 H 26 H 93 09/26/23 20:10 103 H 29 H 92 Nasal Cannula 2 09/26/23 20:00 105 H 34 H 133/82 90 Nasal Cannula 2 Resident Activity Tracking Resident Involvement: Resident Care Provided Care Provided: Adult [facility]
[2023-09-27 08:12] LABS: Basophils # (auto) 0.03 K/uL (0.00-0.20); Basophils % (auto) 0.3 %; Eosinophils # (auto) 0.09 K/uL (0.00-0.50); Eosinophils % (auto) 0.9 %; Hematocrit (blood only) 37.2 % (42.0-52.0); Hemoglobin 11.4 g/dl (14.0-18.0); Immature Granulocytes # (auto) 0.06 K/uL (0.01-0.20); Immature Granulocytes % (auto) 0.6 %; Lymphocytes # (auto) 1.46 K/uL (1.20-3.40); Lymphocytes % (auto) 15.2 %; Mean Corpuscular Hemoglobin 26.1 pg (25.0-34.0); Mean Corpuscular Hgb Conc 30.6 g/dL (32.0-36.0); Mean Corpuscular Volume 85.1 fL (80.0-100.0); Mean Platelet Volume 9.3 fL (9.4-12.4); Monocytes # (auto) 1.08 K/uL (0.11-0.59); Monocytes % (auto) 11.3 %; Neutrophils # (auto) 6.86 K/uL (1.40-6.50); Neutrophils % (auto) 71.7 %; Platelet Count 315 K/uL (130-400); Red Blood Count 4.37 M/uL (4.70-6.10); White Blood Count 9.58 K/ul (4.8-10.8)
[2023-09-27 08:37] LABS: Anion Gap 4 (3-11); BUN Creatinine Ratio 11.1 (10-20); Blood Urea Nitrogen 6 mg/dl (6-23); Calcium 8.6 mg/dl (8.6-10.3); Carbon Dioxide 30 mmol/L (21-32); Chloride 98 mmol/L (98-107); Creatinine Clr Calc Pharmacy 220.6 ml/min; Est GFR (African American) > 150.0 ml/min; Est GFR (Non-African American) 131.3 ml/min; Glucose 110 mg/dl (70-99(Fasting)); Sodium 132 mmol/L (136-145)
[2023-09-27] MEDS: NICOTINE 14 MG/24 HR PATCH TD SCH (10:16)
--- NOTE | 2023-09-27 11:52 | Pulmonology Progress Note ---
Date of Service September 27, 2023 Assessment & Plan (1) Empyema: Plan Impression: 38-year-old male smoker with empyema status post chest tube placement. Recommendations: 1. Empyema: Continue chest tube. Had a long discussion with patient and family at the bedside. Reviewed options to include trial of intrapleural fibrinolytics versus proceeding to thoracic surgery and decortication. They were advised that this is not a service available here and would likely require transfer to a tertiary care facility. Patient is family would like to pursue a trial of intrapleural fibrinolysis/thrombolytics. We will initiate mist 2 protocol. Given the position of the tube. He may require a secondary smaller bore inferior tube to adequately drain the fluid collection but we will see how we do. It is possible that the pleural rind may not resolve and if the lung fails to reexpand, he may require thoracic surgery evaluation for consideration of decortication. 2. Patient is currently day 2 Zosyn and vancomycin. Reasonable to continue for now but can likely de-escalate antimicrobial therapy within the next 24 hours. Suspect probable polymicrobial process. 3. Pain control per primary service. We will continue to follow with you. Repeat chest x-ray in a.m. Above recommendations and plan were extensively discussed with the patient as well as multiple family members in the room at the time of my evaluation. A total of 50 minutes was spent in evaluation management coordination of care for this patient. Admission and Anticipated Discharge Date Admission Date: September 26, 2023 Subjective Patient seen and examined. EMR reviewed. Discussed with off going bag bleacher and with patient and family in the room. The patient is having some slight discomfort at the chest tube insertion site. He does not report fevers chills or night sweats. He is not coughing or bringing up any phlegm. He is not having any respiratory issues. Has been hemodynamically stable. Review of Systems 2 Review of Systems: All systems reviewed & are unremarkable except as noted in Subjective Physical Exam 2 Constitutional: WD/WN, vitals as above Neck: trachea midline, no thyromegaly Respiratory: normal respiratory effort, lungs clear to auscultation Chest tube with good variation. Chest tube output has been over 2 L. Cardiovascular: RRR, no murmur, no edema Gastrointestinal (Abdomen): normal bowel sounds, soft, nontender, no hepatosplenomegaly Musculoskeletal: Extremities: extremities normal to inspection Skin: no rashes, warm and dry Neurologic: Nonfocal exam Lymphatic: no cervical lymphadenopathy Results & Data Results & Data Vital Signs (Past 12 Hours) Vital Signs Pulse Pulse Resp BP BP Pulse Ox O2 Del Method 09/27/23 11:03 98 H 16 111/65 98 Nasal Cannula 09/27/23 07:53 97 H 09/27/23 07:00 90 26 H 93 Nasal Cannula 09/27/23 07:00 115/70 09/27/23 06:30 78 97 Nasal Cannula 09/27/23 06:30 111/70 09/27/23 04:10 80 09/27/23 04:00 96/62 L 09/27/23 04:00 82 26 H 97 Nasal Cannula 09/27/23 03:30 87 22 97 Nasal Cannula 09/27/23 03:30 112/63 09/27/23 03:00 87 26 H 96 Nasal Cannula 09/27/23 03:00 107/65 09/27/23 01:30 108/67 09/27/23 01:30 90 29 H 96 Nasal Cannula 09/27/23 01:00 109/68 09/27/23 01:00 97 H 26 H 96 Nasal Cannula 09/27/23 00:54 Nasal Cannula 09/27/23 00:30 118/70 09/27/23 00:30 96 H 27 H 93 Nasal Cannula O2 Flow Rate 09/27/23 11:03 4 09/27/23 07:53 09/27/23 07:00 2 09/27/23 07:00 09/27/23 06:30 2 09/27/23 06:30 09/27/23 04:10 09/27/23 04:00 09/27/23 04:00 2 09/27/23 03:30 2 09/27/23 03:30 09/27/23 03:00 2 09/27/23 03:00 09/27/23 01:30 09/27/23 01:30 2 09/27/23 01:00 09/27/23 01:00 2 09/27/23 00:54 2 09/27/23 00:30 09/27/23 00:30 2 Laboratory Results 09/27/23 07:32 09/27/23 07:32 Pleural fluid studies: LDH greater than 12,000 Glucose less than 10 Total protein less than 10 Pleural pH unobtainable due to the specimen being p.o. Gram stain showed many white blood cells with many gram-negative rods and few gram-positive cocci. Cultures are pending. Diagnostic Findings CT OF THE CHEST WITHOUT IV CONTRAST 09/26/23 independently reviewed CLINICAL HISTORY: Left empyema. COMPARISON STUDY: Chest CT and chest radiograph performed earlier today. CT DOSE: 785.68 mGy.cm TECHNIQUE: Axial images of the chest were obtained without IV contrast. Images were reviewed in the axial, sagittal, and coronal planes. IV contrast was not administered for this examination. Automated exposure control was utilized for the study. A dose lowering technique was utilized adhering to the principles of ALARA. FINDINGS: Interval placement of a left chest tube is noted. Mild stranding and a small amount of gas within the left chest wall is expected given recent tube placement. The previously described left pleural collection suggestive of an empyema has significantly decreased in size. The amount of fluid has markedly decreased. A small amount of residual pleural fluid is noted. The amount of pleural gas has increased. Pleural thickening is again noted. The tube is well- positioned. Extensive left lower lobe airspace opacity with volume loss is noted. This predominantly reflects atelectasis. A 4.9 cm irregular opacity within the apicoposterior segment of the left upper lobe and the superior segment of the left lower lobe is noted. This extends across the fissure and contains fluid and a small amount of gas. This is similar to prior CT. Scattered alveolar opacities within the right middle and right lower lobes are present. These are also unchanged. Size of the heart is normal. There is no pericardial effusion. Several prominent mediastinal lymph nodes are noted. None are pathologically enlarged. Contrast within the collecting systems is from recent contrast-enhanced CT. Visualized portions of the upper abdomen are unremarkable. IMPRESSION: 1. Interval placement of a well-positioned left-sided chest tube with significant decrease in size of the previously described left empyema. Small amount of residual pleural fluid. Increase in pleural gas, likely related to inability of left lower lobe to expand. Persistent extensive left lower lobe opacity. This probably reflects atelectasis. 2. 4.9 cm irregular opacity extending across the fissure, involving the apicoposterior segment of the left upper lobe and superior segment of the left lower lobe. This contains fluid and a small amount of gas. This favors small residual loculated empyema. 3. Scattered alveolar opacities within the right lower lobe and right middle lobe consistent with an infectious process. PG Care Time/CCT Total # of Minutes Spent Total Time Spent with Patient: Total time spent is greater than 50% in coordination of care (as documented) at patient's floor/unit and/or counseling patient: Coding Level of Care Code 61263 SUB INP/OBS CARE 3/50MIN Diagnoses Empyema J86.9
[2023-09-27] MEDS ORDERED: VANCOMYCIN CONSULT ACTIVE PRN (18:22)
[2023-09-27] MEDS: ACETAMINOPHEN 500 MG TAB PO SCH ×2 (18:27→23:02)
[2023-09-27] MEDS: KETOROLAC TROMETHAMINE 15 MG/ML VIAL IV PRN (18:28)
[2023-09-27] MEDS: DORNASE ALFA 5 ML in SYRINGE 25 ML IPL SCH ×2 (18:31→22:09)
[2023-09-27] MEDS: ALTEPLASE, RECOMBINANT 10 MG in SYRINGE 50 ML IPL SCH ×2 (18:32→21:01)
--- NOTE | 2023-09-27 18:48 | Billing Data ---
Date of Service September 27, 2023 Coding Level of Care Code 48999 SUB INP/OBS CARE
[2023-09-27] MEDS ORDERED: VANCOMYCIN HCL 2,500 MG in SODIUM CHLORIDE 0.9% 500 ML IV SCH (19:30)
[2023-09-28] MEDS: PIPERACILLIN/TAZOBACTAM 4.5 GM in DEXTROSE 5% MINI-B 100 ML IV SCH ×3 (01:42→18:40)
[2023-09-28] MEDS: ACETAMINOPHEN 500 MG TAB PO SCH ×3 (05:46→23:49)
[2023-09-28 06:02] LABS: Basophils # (auto) 0.02 K/uL (0.00-0.20); Basophils % (auto) 0.3 %; Eosinophils # (auto) 0.11 K/uL (0.00-0.50); Eosinophils % (auto) 1.5 %; Hematocrit (blood only) 31.8 % (42.0-52.0); Hemoglobin 10.2 g/dl (14.0-18.0); Immature Granulocytes # (auto) 0.05 K/uL (0.01-0.20); Immature Granulocytes % (auto) 0.7 %; Lymphocytes # (auto) 1.19 K/uL (1.20-3.40); Lymphocytes % (auto) 16.3 %; Mean Corpuscular Hemoglobin 26.6 pg (25.0-34.0); Mean Corpuscular Hgb Conc 32.1 g/dL (32.0-36.0); Mean Platelet Volume 9.4 fL (9.4-12.4); Monocytes % (auto) 9.6 %; Neutrophils # (auto) 5.25 K/uL (1.40-6.50); Neutrophils % (auto) 71.6 %; Platelet Count 257 K/uL (130-400); RDW Coefficient of Variation 16.8 % (11.5-14.5); RDW Standard Deviation 50.9 fL (36.4-46.3); Red Blood Count 3.83 M/uL (4.70-6.10); White Blood Count 7.32 K/ul (4.8-10.8)
--- NOTE | 2023-09-28 06:38 | Hospitalist Progress Note ---
Date of Service September 28, 2023 Assessment & Plan (1) Empyema: Plan: Plan to continue Zosyn,vancomycin; could consider deescalating based on cultures. MRSA nares negative on admission. - sputum with normal loly - pleural fluid with pin point growth - blood cultures negative x 24 hours - Plan for trial of trial of intrapleural fibrinolytics, if fails would need to consider transfer for thoracic surgery consult - legionella, TB pending - CXR from 09/27 largely unchanged from prior - Appreciate pulmonology management of chest tube - Pain control with scheduled Tylenol, prn Dilaudid, prn Toradol (2) Smoker: Plan: Nicotine patch ordered Plan VTE Prophylaxis - deferred at present due to chest tube placement Diet - regular Admission and Anticipated Discharge Date Admission Date: September 26, 2023 Supervising Physician Co-Signing Physician Notes I personally examined the patient and verified all skelton points of history and exam, discussed case, and agree with decision making with Dr Slade pain control doing better, no other new complaints today. Vitals noted, in general he is awake and alert pleasant no distress. HEENT normocephalic atraumatic mucous membranes moist. Left-sided chest tube noted. CT chest noted. Empyemabroad antibiotics and chest tube drainage, mist 2 protocol. Follow closely. continue current pain control. Subjective No events overnight. Pt has been hemodynamically stable and is currently on room air. Pain is better controlled today. Review of Systems Review of Systems: As per above Physical Exam Physical Exam: Constitutional: well-appearing, no acute distress HEENT: NCAT, no conjunctival injection CV: regular rhythm, no murmur appreciated, extremities well-perfused, no LE edema Resp: no increased work of breathing. Decreased breath sounds on the left side GI: soft, nondistended, nontender, BS normoactive MSK: no gross deformities appreciated Skin: warm, dry, no rash appreciated Neuro: alert, oriented, no focal neurologic deficit appreciated Results & Data Results & Data Vital Signs (Past 12 Hours) Vital Signs Temp Pulse Pulse Resp BP Pulse Ox O2 Del Method 09/28/23 03:23 36.5 C 76 18 120/75 98 Room Air 09/27/23 22:58 36.5 C 78 18 114/74 98 Nasal Cannula 09/27/23 22:15 82 09/27/23 20:59 36.5 C 85 18 108/82 98 Nasal Cannula 09/27/23 20:50 Room Air 09/27/23 20:24 98 H O2 Flow Rate 09/28/23 03:23 09/27/23 22:58 1 09/27/23 22:15 09/27/23 20:59 2 09/27/23 20:50 09/27/23 20:24 Resident Activity Tracking Resident Involvement: Resident Care Provided Care Provided: Adult Hospital Medicine
[2023-09-28 06:53] LABS: Albumin Level 2.5 gm/dl (3.4-5.0); Bilirubin,Total 0.5 mg/dl (0.2-1.0); Calcium 8.3 mg/dl (8.6-10.3); Magnesium 1.7 mg/dl (1.7-2.4); Potassium 3.7 mmol/L (3.5-5.1)
[2023-09-28 06:59] LABS: Albumin Globulin Ratio 0.6 (0.9-2); BUN Creatinine Ratio 15.8 (10-20); Creatinine Clr Calc Pharmacy 209.7 ml/min; Est GFR (African American) 148.9 ml/min; Est GFR (Non-African American) 128.4 ml/min; Globulin 3.9 gm/dl (2.5-4.0); Total Protein 6.4 gm/dl (6.0-8.3)
--- NOTE | 2023-09-28 07:32 | XRay Report ---
SINGLE VIEW CHEST CLINICAL HISTORY: Chest tube. Empyema. FINDINGS: 2 AP, portable, upright chest radiographs are compared to chest x-ray and chest CT dated . The cardiomediastinal silhouette is unremarkable. A left-sided chest tube is unchanged in p osition. There is a persistent gas and fluid-containing collection at the left lung base with associa igor left basilar consolidation. This is similar in appearance to the 09/26/2023 examination. The righ t lung appears clear. No right-sided pneumothorax is seen. There is chronic deformity of the right cl avicle. Subcutaneous emphysema is noted in the left chest wall. IMPRESSION: 1. A left-sided chest tube is unchanged in position. 2. A gas and fluid containing pleural collection at the left lung base is unchanged with associated l eft basilar consolidation. 3. The right lung appears clear.. ACT 112: Negative or not required by law. Electronically signed by: Aniceto Dahl M.D. 09/28/2023 7:30 AM
[2023-09-28] MEDS: VANCOMYCIN HCL 1,750 MG in SODIUM CHLORIDE 0.9% 500 ML IV SCH ×2 (09:20→20:50)
--- NOTE | 2023-09-28 09:26 | Pulmonology Progress Note ---
Date of Service September 28, 2023 Assessment & Plan (1) Empyema: Plan Impression: 38-year-old male smoker with empyema status post chest tube placement. Recommendations: 1. Empyema: Continue chest tube. Currently on day 2 of mist 2 protocol. Tolerating well with ongoing output. CXR shows improvement today. Will evaluate with CXR tomorrow AM. 2. Patient is currently day 2 Zosyn and vancomycin. Reasonable to continue for now but can likely de-escalate antimicrobial therapy within the next 24 hours. Currently growing out Strep intermedius with sensitivities still pending at this time. 3. Pain control per primary service. We will continue to follow with you. Admission and Anticipated Discharge Date Admission Date: September 26, 2023 Subjective Patient seen and evaluated by bedside. He reports no discomfort at this time. His breathing continues to improve. He offers no complaints, but is anxious for discharge when able. Review of Systems Review of Systems: Unchanged from prior. Physical Exam Physical Exam: VITAL SIGNS - Vital signs and nursing notes were reviewed. GENERAL - 38-year-old male appearing his stated age who is in no acute distress. Communicates well with provider and answers questions appropriately. SKIN - Without rashes or lesions. LEFT-sided chest tube dressing clean, dry, and intact. LUNGS - Diminished breath sounds at the LEFT-sided lung base. CARDIAC - RRR with S1/S2. No murmur, rubs, or gallops appreciated. ABDOMEN - Abdominal inspection demonstrates an obese abdomen. BS normoactive all four quadrants. No tenderness, palpable masses, or ascites noted. PSYCH - A&Ox3 and cooperates fully with examiner. Pt is very pleasant and interacts well with examiner. Results & Data Results & Data Vital Signs (Past 12 Hours) Vital Signs Temp Pulse Pulse Resp BP Pulse Ox O2 Del Method 09/28/23 07:44 Room Air 09/28/23 07:31 36.8 C 80 20 107/73 93 Room Air 09/28/23 03:23 36.5 C 76 18 120/75 98 Room Air 09/27/23 22:58 36.5 C 78 18 114/74 98 Nasal Cannula 09/27/23 22:15 82 O2 Flow Rate 09/28/23 07:44 09/28/23 07:31 09/28/23 03:23 09/27/23 22:58 1 09/27/23 22:15 PG Care Time/CCT Total # of Minutes Spent Total Time Spent with Patient: Total time spent is greater than 50% in coordination of care (as documented) at patient's floor/unit and/or counseling patient: Coding Level of Care Code 47932 SUB INP/OBS CARE 2/35MIN Diagnoses Empyema J86.9
[2023-09-28] MEDS: ALTEPLASE, RECOMBINANT 10 MG in SYRINGE 50 ML IPL SCH ×2 (10:02→22:22)
[2023-09-28] MEDS: NICOTINE 14 MG/24 HR PATCH TD SCH (10:02)
--- NOTE | 2023-09-28 10:52 | Pharmacy Report ---
Pharmacy PK ABX Note - Date of Service September 28, 2023 - Assessment and Plan Assessment 38 year old M receiving vancomycin and zosyn for treatment of empyema s/p chest tube placement. MRSA nasal (-), 09/26 sputum culture (+) loly, pleural fluid culture reincubating. Day # 2 of antimicrobial therapy. Plan Vancomycin * Loading dose: 2500 mg IV x 1 * Maintenance dose: 1750 mg IV every 12 hours * Regimen is predicted to achieve target AUC/ESTEFANY of 400-600 mg/L.hr * Random level tomorrow AM Pharmacy will continue to follow and will adjust dose/frequency as necessary. Thank you. Pharmacy has transitioned to AUC monitoring for vancomycin. AUC/ESTEFANY is the preferred PK/PD target and is associated with decreased risk of nephrotoxicity compared to traditional trough targets.
[2023-09-28] MEDS: DORNASE ALFA 5 ML in SYRINGE 25 ML IPL SCH ×2 (11:12→23:24)
[2023-09-28 12:15] LABS: Quantiferon Mitogen-NIL >10.00 IU/mL; Quantiferon NIL 0.01 IU/mL; Quantiferon TB Gold Plus NEGATIVE (NEGATIVE); Quantiferon TB1-NIL 0.01 IU/mL; Quantiferon TB2-NIL 0.01 IU/mL
--- NOTE | 2023-09-28 17:21 | Billing Data ---
Date of Service September 28, 2023 Coding Level of Care Code 05835 SUB INP/OBS CARE
[2023-09-28] MEDS: KETOROLAC TROMETHAMINE 15 MG/ML VIAL IV PRN (18:45)
[2023-09-29] MEDS: PIPERACILLIN/TAZOBACTAM 4.5 GM in DEXTROSE 5% MINI-B 100 ML IV SCH (02:02)
--- NOTE | 2023-09-29 06:17 | Electrocardiogram Report ---
Test Reason : Blood Pressure : / mmHG Vent. Rate : 131 BPM Atrial Rate : 131 BPM P-R Int : 152 ms QRS Dur : 078 ms QT Int : 300 ms P-R-T Axes : 060 026 141 degrees QTc Int : 443 ms Sinus tachycardia Septal infarct (cited on or before 30-JUL-2023) T wave abnormality, consider lateral ischemia Abnormal ECG When compared with ECG of 30-JUL-2023 05:27, T wave inversion now evident in Lateral leads Confirmed by Dc Corbin ([id number]) on 09/29/2023 6:17:12 AM Referred By: REFERRED SELF Confirmed By:Dc Corbin
[2023-09-29 06:27] LABS: Basophils # (auto) 0.03 K/uL (0.00-0.20); Basophils % (auto) 0.5 %; Eosinophils # (auto) 0.14 K/uL (0.00-0.50); Eosinophils % (auto) 2.1 %; Hemoglobin 10.6 g/dl (14.0-18.0); Immature Granulocytes # (auto) 0.04 K/uL (0.01-0.20); Immature Granulocytes % (auto) 0.6 %; Lymphocytes # (auto) 1.34 K/uL (1.20-3.40); Lymphocytes % (auto) 20.3 %; Mean Corpuscular Hemoglobin 26.4 pg (25.0-34.0); Mean Corpuscular Hgb Conc 31.2 g/dL (32.0-36.0); Mean Corpuscular Volume 84.8 fL (80.0-100.0); Mean Platelet Volume 9.1 fL (9.4-12.4); Monocytes # (auto) 0.59 K/uL (0.11-0.59); Neutrophils # (auto) 4.45 K/uL (1.40-6.50); Neutrophils % (auto) 67.5 %; Platelet Count 278 K/uL (130-400); RDW Coefficient of Variation 16.9 % (11.5-14.5); RDW Standard Deviation 52.3 fL (36.4-46.3); Red Blood Count 4.01 M/uL (4.70-6.10); White Blood Count 6.59 K/ul (4.8-10.8)
[2023-09-29 06:42] LABS: Albumin Globulin Ratio 0.6 (0.9-2); Albumin Level 2.5 gm/dl (3.4-5.0); BUN Creatinine Ratio 11.6 (10-20); Bilirubin,Total 0.3 mg/dl (0.2-1.0); Calcium 8.3 mg/dl (8.6-10.3); Creatinine Clr Calc Pharmacy 172.4 ml/min; Est GFR (African American) 137.6 ml/min; Est GFR (Non-African American) 118.7 ml/min; Magnesium 1.8 mg/dl (1.7-2.4); Potassium 3.5 mmol/L (3.5-5.1); Total Protein 6.5 gm/dl (6.0-8.3)
--- NOTE | 2023-09-29 06:46 | Hospitalist Progress Note ---
Date of Service September 29, 2023 Assessment & Plan (1) Empyema: Plan: - Plan to transition from Zosyn,vancomycin to Augmentin for at least a 2 week duration - sputum with normal loly - pleural fluid growing streptococcus intermedius - blood cultures negative - Plan for trial of trial of intrapleural fibrinolytics; day 3 of mist 2 protocol - legionella pending - TB negative - Repeat CXR 09/29 with interval improvement, continues to show trapped lung that may require invention from thoracic surgery; plan for f/u CT today. - Appreciate pulmonology management of chest tube - Pain control with scheduled Tylenol, prn Dilaudid, prn Toradol (2) Smoker: Plan: Nicotine patch ordered Plan VTE Prophylaxis - deferred at present due to chest tube placement Diet - regular Admission and Anticipated Discharge Date Admission Date: September 26, 2023 Supervising Physician Co-Signing Physician Notes I personally examined the patient and verified all skelton points of history and exam, discussed case, and agree with decision making with Dr Slade seen briefly as he was going to CT. pain under reasonable control. d/w pulmonary - input greatly appreciated. Vitals noted, in general he is awake and alert pleasant no distress. HEENT normocephalic atraumatic mucous membranes moist. Left-sided chest tube noted. CT chest noted. Empyemabroad antibiotics and chest tube drainage, mist 2 protocol. may end up needing VATS but in discussion with pulmonary (who also d/w thoracic) continue current care for now. Follow closely. continue current pain control. Subjective Pt seen this bedside this morning. Doing well. No complaints. Pain is well controlled. Review of Systems 2 Review of Systems: As per above Physical Exam Physical Exam: Constitutional: well-appearing, no acute distress HEENT: NCAT, no conjunctival injection CV: regular rhythm, no murmur appreciated, extremities well-perfused, no LE edema Resp: no increased work of breathing. Decreased breath sounds on the left side with interval improvement GI: soft, nondistended, nontender, BS normoactive MSK: no gross deformities appreciated Skin: warm, dry, no rash appreciated Neuro: alert, oriented, no focal neurologic deficit appreciated Results & Data Results & Data Vital Signs (Past 12 Hours) Vital Signs Temp Pulse Resp BP Pulse Ox O2 Del Method 09/29/23 03:20 36.6 C 78 16 126/81 95 Room Air 09/28/23 22:18 36.6 C 83 18 122/78 94 Room Air 09/28/23 20:45 Room Air 09/28/23 20:11 37.0 C 88 18 129/80 95 Room Air Resident Activity Tracking Resident Involvement: Resident Care Provided Care Provided: Adult Hospital Medicine
[2023-09-29] MEDS: ACETAMINOPHEN 500 MG TAB PO SCH ×3 (06:49→22:40)
[2023-09-29] MEDS ORDERED: VANCOMYCIN LEVEL ONE (07:00)
[2023-09-29] MEDS ORDERED: VANCOMYCIN HCL 1,500 MG in SODIUM CHLORIDE 0.9% 500 ML IV SCH (08:00)
[2023-09-29] MEDS: NICOTINE 14 MG/24 HR PATCH TD SCH (08:09)
--- NOTE | 2023-09-29 08:53 | XRay Report ---
XR chest 1V portable HISTORY: Chest tube ? MIST 2 protocol COMPARISON: Chest 09/28/2023. FINDINGS: A left basilar chest tube remains unchanged in position. The small left basilar gas and flu id collection remains unchanged in size. Left basilar densities persist. The right lung is clear. The heart is normal in size. IMPRESSION: No significant change in the gas and fluid collection at the left lung base and left basilar densitie s. A left-sided chest tube is unchanged in position. ACT 112: Negative or not required by law. Electronically signed by: Cecilio Linton M.D. 09/29/2023 8:51 AM
--- NOTE | 2023-09-29 09:25 | Pulmonology Progress Note ---
Date of Service September 29, 2023 Assessment & Plan (1) Empyema: Plan Impression: 38-year-old male smoker with empyema status post chest tube placement. Cultures are growing strep intermedius. He continues to demonstrate trapped physiology without expansion. Recommendations: 1. Empyema: Continue chest tube. Currently on day 3 of mist 2 protocol. Tolerating well with ongoing output. CXR shows improvement today. Will check noncontrasted CT of the chest to see whether there is residual fluid present which may benefit from additional tube placement. Will discuss with thoracic surgery as the patient demonstrates and trapped lung which may require decortication although has shown some interval improvement over the last several days. If the tube was removed at this point in time, suspect that though he pleural effusion would reaccumulate fairly rapidly although the fluid collection may be sterile at that point in time. 2. De-escalate antimicrobial therapy to oral Augmentin. Will need at least 2 weeks of therapy 3. Pain control per primary service. We will continue to follow with you. Admission and Anticipated Discharge Date Admission Date: September 26, 2023 Subjective Patient seen and examined. EMR reviewed. Patient states his pain is adequately controlled. He does not coughing or expectorating significant phlegm. He is tolerating a diet. He is on room air. Review of Systems 2 Review of Systems: All systems reviewed & are unremarkable except as noted in Subjective Physical Exam 2 Constitutional: WD/WN, vitals as above Neck: trachea midline, no thyromegaly Respiratory: normal respiratory effort, lungs clear to auscultation Cardiovascular: RRR, no murmur, no edema Gastrointestinal (Abdomen): normal bowel sounds, soft, nontender, no hepatosplenomegaly Musculoskeletal: Extremities: extremities normal to inspection Skin: no rashes, warm and dry Lymphatic: no cervical lymphadenopathy Results & Data Results & Data Vital Signs (Past 12 Hours) Vital Signs Temp Pulse Pulse Resp BP Pulse Ox O2 Del Method 09/29/23 07:37 36.7 C 78 21 116/87 94 Room Air 09/29/23 03:20 36.6 C 78 16 126/81 95 Room Air 09/29/23 00:00 84 09/28/23 22:18 36.6 C 83 18 122/78 94 Room Air Chest tube output: 400 mL last 24 hours Laboratory Results Pleural fluid culture strep intermedius 09/29/23 06:03 09/29/23 06:03 Microbiology 09/26/23 13:40 Pleural Fluid Gram Stain - Final 09/26/23 13:40 Pleural Fluid Aerobic and Anaerobic Culture - Preliminary Streptococcus intermedius 09/26/23 13:30 Blood Aerobic Blood Culture - Preliminary No growth in Aerobic bottle after 48 hours. 09/26/23 13:30 Blood Anaerobic Blood Culture - Preliminary No growth in Anaerobic bottle after 48 hours. 09/26/23 12:27 Blood Aerobic Blood Culture - Preliminary No growth in Aerobic bottle after 48 hours. 09/26/23 12:27 Blood Anaerobic Blood Culture - Preliminary No growth in Anaerobic bottle after 48 hours. 09/26/23 13:15 Sputum, Expectorated Gram Stain - Final 09/26/23 13:15 Sputum, Expectorated Sputum Culture - Final Moderate normal loly. 09/26/23 13:15 Sputum, Expectorated Acid Fast Bacilli Smear - Final Diagnostic Findings Chest x-ray from today was independently reviewed. There is persistent trapped lung at the left lung base. Tubes in good position. PG Care Time/CCT Total # of Minutes Spent Total Time Spent with Patient: Total time spent is greater than 50% in coordination of care (as documented) at patient's floor/unit and/or counseling patient: Coding Level of Care Code 20374 SUB INP/OBS CARE 3/50MIN Diagnoses Empyema J86.9
[2023-09-29] MEDS: ALTEPLASE, RECOMBINANT 10 MG in SYRINGE 50 ML IPL SCH ×2 (09:36→21:30)
[2023-09-29] MEDS: DORNASE ALFA 5 ML in SYRINGE 25 ML IPL SCH ×2 (10:54→22:35)
[2023-09-29] MEDS: KETOROLAC TROMETHAMINE 15 MG/ML VIAL IV PRN ×2 (11:02→20:57)
--- NOTE | 2023-09-29 11:40 | CT Scan Report ---
CT chest diagnostic wo con CT DOSE: 775.47 mGy.cm HISTORY: Follow-up left-sided empyema TECHNIQUE: Multiaxial CT images of the chest were performed without contrast. A dose lowering techni que was utilized adhering to the principles of ALARA. COMPARISON: Chest CT 09/26/2023. FINDINGS: A left-sided chest tube is again noted and is unchanged in position. The loculated left bas ilar pleural gas and fluid collection remains unchanged. There is an a small amount of fluid remainin g within the pleural collection, unchanged. This demonstrates a thickened pleural lining and is consi stent with an empyema. A small left pleural effusion is again noted. Stranding/edema within the left lateral chest wall and subcutaneous emphysema has progressed. Prominent mediastinal lymph nodes remai n stable. Normal esophagus. Normal caliber thoracic aorta. The heart is normal in size. No pericardia l effusion. Old right clavicle fracture again noted. No acute fractures. No suspicious osseous lesion s. Limited views of the upper abdomen demonstrate a normal liver and adrenal glands. The spleen may b e mildly enlarged. Small clusters of tree-in-bud nodular opacities seen within the right lung base. T his has improved in the interval. Consolidation within the base of the left lower lobe remains unchan ged. Partial opacification of the left lower lobe bronchi again noted. The trachea is patent. Focal i rregular opacity involving the left upper lobe and superior segment left lower lobe again noted. This extends across the fissure and contains a small amount of fluid and gas. This measures approximately 4.7 cm and is best seen image 82. This is similar to the prior study. Cystic focus adjacent to the l eft thyroid lobe remain stable. IMPRESSION: 1. No significant change in the loculated left basilar gas and fluid collection which contains a smal l amount of residual fluid consistent with the patient's known empyema. The left chest tube remains i n good position. 2. Left lateral chest wall subcutaneous emphysema and a small amount of fluid/stranding has slightly progressed. 3. Left lower lobe basilar consolidation persists. This may represent atelectasis. 4. No change in the 4.7 cm irregular opacity extending across the left major fissure and involving th e left upper and lower lobes as described above. This contains a small amount of fluid and gas. This may represent a small residual loculated empyema. Follow-up recommended to ensure resolution. 5. Scattered tree-in-bud nodular opacities within the right lung base have improved consistent with a resolving pneumonitis. ACT 112: Negative or not required by law. Electronically signed by: Cecilio Linton M.D. 09/29/2023 11:39 AM
--- NOTE | 2023-09-29 16:06 | Billing Data ---
Date of Service September 29, 2023 Coding Level of Care Code 19151 SUB INP/OBS CARE
[2023-09-29] MEDS: AMOXICILLIN/CLAVULANATE 875 MG TAB PO SCH (17:44)
[2023-09-30] MEDS ORDERED: VANCOMYCIN LEVEL ONE (07:00)
[2023-09-30 08:06] LABS: Hematocrit (blood only) 33.1 % (42.0-52.0); Hemoglobin 10.5 g/dl (14.0-18.0); Mean Corpuscular Hemoglobin 26.4 pg (25.0-34.0); Mean Corpuscular Hgb Conc 31.7 g/dL (32.0-36.0); Mean Corpuscular Volume 83.4 fL (80.0-100.0); Mean Platelet Volume 9.2 fL (9.4-12.4); Platelet Count 330 K/uL (130-400); RDW Coefficient of Variation 16.8 % (11.5-14.5); RDW Standard Deviation 51.3 fL (36.4-46.3); Red Blood Count 3.97 M/uL (4.70-6.10); White Blood Count 7.65 K/ul (4.8-10.8)
[2023-09-30 08:21] LABS: Anion Gap 5 (3-11); BUN Creatinine Ratio 15.7 (10-20); Blood Urea Nitrogen 8 mg/dl (6-23); Calcium 8.4 mg/dl (8.6-10.3); Carbon Dioxide 27 mmol/L (21-32); Chloride 107 mmol/L (98-107); Creatinine Clr Calc Pharmacy 234.2 ml/min; Est GFR (African American) > 150.0 ml/min; Est GFR (Non-African American) 134.5 ml/min; Glucose 109 mg/dl (70-99(Fasting)); Potassium 3.4 mmol/L (3.5-5.1); Sodium 139 mmol/L (136-145)
[2023-09-30] MEDS: AMOXICILLIN/CLAVULANATE 875 MG TAB PO SCH ×2 (08:24→16:50)
[2023-09-30] MEDS: KETOROLAC TROMETHAMINE 15 MG/ML VIAL IV PRN (08:25)
[2023-09-30] MEDS: NICOTINE 14 MG/24 HR PATCH TD SCH (08:25)
[2023-09-30] MEDS: ACETAMINOPHEN 500 MG TAB PO SCH ×3 (08:25→21:36)
--- NOTE | 2023-09-30 10:09 | Pulmonology Progress Note ---
Date of Service September 30, 2023 Assessment & Plan (1) Empyema: Plan Impression: 38-year-old male smoker with empyema status post chest tube placement. Cultures are growing strep intermedius. He continues to demonstrate trapped physiology without expansion. Recommendations: 1. Empyema: Completed mist 2 protocol. The lung appears trapped. CT from yesterday was reviewed and chest x-ray from today was reviewed demonstrating persistent trapped lung with small hydropneumothorax. Discussed with thoracic surgery yesterday. Plan is to complete at least 5 days of drainage and see how he does. If the drain output decreases below 150 to 200 mL/day, could consider discontinuation of the tube at which point in time I would expect the space to fill up with fluid but hopefully it would be sterile. If the patient were to have recurrence of infectious symptoms, that would necessitate thoracic surgical intervention at that point in time. Alternatively, the patient could be referred for thoracic surgery evaluation and decortication with risk of potential bronchopleural fistula and will be unclear how much improved aeration we would get at the lung base with surgical intervention. They would like to hold off for now and I think that is reasonable. Discussed with patient he is agreeable 2. Continue Augmentin for 2 weeks total therapy 3. Pain control per primary service. We will continue to follow with you. Admission and Anticipated Discharge Date Admission Date: September 26, 2023 Subjective Patient seen and examined. EMR reviewed. Imaging independently reviewed. Patient is doing well. His nicotine patch appears to be functioning well. Pain control is adequate. He is not having any new respiratory issues. No cough or sputum production. Review of Systems 2 Review of Systems: All systems reviewed & are unremarkable except as noted in Subjective Physical Exam 2 Constitutional: WD/WN, vitals as above Neck: trachea midline, no thyromegaly Respiratory: normal respiratory effort, lungs clear to auscultation Cardiovascular: RRR, no murmur, no edema Chest (Breasts): Additional Comments: Small intermittent airleak noted. Chest tube output remains 290 mL last 24 hours Gastrointestinal (Abdomen): normal bowel sounds, soft, nontender, no hepatosplenomegaly Musculoskeletal: Extremities: extremities normal to inspection Skin: no rashes, warm and dry Lymphatic: no cervical lymphadenopathy Results & Data Results & Data Vital Signs (Past 12 Hours) Vital Signs Temp Pulse Pulse Resp BP Pulse Ox O2 Del Method 09/30/23 08:57 37.0 C 89 16 120/75 94 Room Air 09/30/23 05:34 36.6 C 79 18 124/80 95 Room Air 09/30/23 03:00 36.6 C 81 15 123/84 96 Room Air 09/30/23 00:51 79 09/29/23 23:33 36.5 C 74 16 116/83 94 Room Air Laboratory Results 09/30/23 07:34 09/30/23 07:34 Diagnostic Findings Chest x-ray today was reviewed. The tube appears to be in stable position. There is persistent hydropneumothorax at the lung base unchanged from prior PG Care Time/CCT Total # of Minutes Spent Total Time Spent with Patient: Total time spent is greater than 50% in coordination of care (as documented) at patient's floor/unit and/or counseling patient: Coding Level of Care Code 65617 SUB INP/OBS CARE 2/35MIN Diagnoses Empyema J86.9
--- NOTE | 2023-09-30 10:16 | XRay Report ---
XR chest 1V portable CLINICAL HISTORY: Chest tube ? MIST 2 protocol TECHNIQUE: Single frontal radiograph of the chest was obtained. Comparison: Comparison is made to chest radiograph 09/29/2023 FINDINGS: Lines and tubes are stable. The cardiomediastinal silhouette is normal. Redemonstration of a left mid lung opacity. Basilar pneumothorax and subcutaneous emphysema are seen. IMPRESSION: Satisfactory position of left chest tube. Stable left basilar pneumothorax and adjacent opacities. ACT 112: Negative or not required by law. Electronically signed by: Sudhakar Kemp M.D. 09/30/2023 10:14 AM
[2023-09-30] MEDS: ALTEPLASE, RECOMBINANT 10 MG in SYRINGE 50 ML IPL SCH (10:29)
[2023-09-30] MEDS: DORNASE ALFA 5 ML in SYRINGE 25 ML IPL SCH (11:37)
--- NOTE | 2023-09-30 14:27 | Hospitalist Progress Note ---
Date of Service September 30, 2023 Assessment & Plan (1) Empyema: Plan: - on augmentin - sputum with normal loly - pleural fluid growing streptococcus intermedius - blood cultures negative - Plan for trial of trial of intrapleural fibrinolytics; continuing mist 2 protocol - legionella pending - TB negative - may need VATS for trapped lung (or if empyema doesn't improve on MIST2) but not emergent no need for transfer at this time - Appreciate pulmonology management of chest tube - Pain control with scheduled Tylenol, prn Dilaudid, prn Toradol (2) Smoker: Plan: on Nicotine patch Plan VTE Prophylaxis - deferred at present due to chest tube placement Diet - regular Admission and Anticipated Discharge Date Admission Date: September 26, 2023 Subjective feeling fine pain controlled no new issues pulmonary input appreciated Review of Systems Review of Systems: All systems reviewed & are unremarkable except as noted in HPI & below Physical Exam Physical Exam: gen aaox3 pleasant nad heent nc at mmm breathing unlabored no accessory muscles good effort skin no rashes no pallor or icterus neuro no focal defficits Results & Data Results & Data Vital Signs (Past 12 Hours) Vital Signs Temp Pulse Resp BP Pulse Ox O2 Del Method 09/30/23 11:52 98.6 F 82 16 128/82 96 Room Air 09/30/23 08:57 98.6 F 89 16 120/75 94 Room Air 09/30/23 05:34 97.9 F 79 18 124/80 95 Room Air 09/30/23 03:00 97.9 F 81 15 123/84 96 Room Air PG Care Time/CCT Total # of Minutes Spent Total Time Spent with Patient: Total time spent is greater than 50% in coordination of care (as documented) at patient's floor/unit and/or counseling patient: Coding Level of Care Code 99345 SUB INP/OBS CARE 25MIN Diagnoses Empyema J86.9 Smoker F17.200
[2023-09-30] MEDS: HYDROmorphone INJ 0.5 MG/0.5 ML SYR IV PRN (16:55)
[2023-10-01] MEDS: ACETAMINOPHEN 500 MG TAB PO SCH ×3 (06:00→21:24)
[2023-10-01 07:10] LABS: Creatinine Clr Calc Pharmacy 207.5 ml/min; Est GFR (African American) 147.8 ml/min; Est GFR (Non-African American) 127.5 ml/min
--- NOTE | 2023-10-01 07:11 | XRay Report ---
SINGLE VIEW CHEST CLINICAL HISTORY: Chest tube. Empyema. FINDINGS: An AP, portable, upright chest radiograph is compared to study dated 09/30/2023 and correla igor with chest CT dated 09/29/2023. The cardiomediastinal silhouette is unremarkable. A left-sided ch est tube is unchanged in position. There is a persistent gas and fluid-containing collection at the l eft lung base with associated left basilar consolidation. This is similar in appearance to yesterday. The right lung appears clear. No right-sided pneumothorax is seen. There is chronic deformity of the right clavicle. Subcutaneous emphysema is noted in the left chest wall. IMPRESSION: 1. A left-sided chest tube is unchanged in position. 2. A gas and fluid containing pleural collection at the left lung base is unchanged with associated l eft basilar consolidation. 3. The right lung appears clear. ACT 112: Negative or not required by law. Electronically signed by: Aniceto Dahl M.D. 10/01/2023 7:09 AM
--- NOTE | 2023-10-01 07:40 | Hospitalist Progress Note ---
Date of Service October 01, 2023 Assessment & Plan (1) Empyema: Plan: - continue Augmentin, plan for total duration of 2 weeks - sputum with normal loly - pleural fluid growing streptococcus intermedius - blood cultures negative -completed mist 2 protocol - may need VATS for trapped lung if reaccumulation of pleural fluid, but not emergent at this time. - Appreciate pulmonology management of chest tube; hope to discontinue in the next 24 hours if output remains low - Pain control with scheduled Tylenol, prn Dilaudid, prn Toradol (2) Smoker: Plan: Nicotine patch ordered Plan VTE Prophylaxis - deferred at present due to chest tube placement Diet - regular Admission and Anticipated Discharge Date Admission Date: September 26, 2023 Supervising Physician Co-Signing Physician Notes I personally examined the patient and verified all skelton points of history and exam, discussed case, and agree with decision making with Dr Slade no new complaints, pulm input appreciated. Vitals noted, in general he is awake and alert pleasant no distress. HEENT normocephalic atraumatic mucous membranes moist. Breathing unlabored no accessory muscle use. Neuro without focal deficits. Empyemabroad antibiotics and chest tube drainage, continue mist 2 protocol. Pain is controlled. Otherwise per pulmonary Subjective Doing well this morning. No complaints. No pain. Review of Systems Review of Systems: As per above Physical Exam Physical Exam: Constitutional: well-appearing, no acute distress HEENT: NCAT, no conjunctival injection CV: regular rhythm, no murmur appreciated, extremities well-perfused, no LE edema Resp: no increased work of breathing. Decreased breath sounds left base with continued improvement MSK: no gross deformities appreciated Skin: warm, dry, no rash appreciated Neuro: alert, oriented, no focal neurologic deficit appreciated Results & Data Results & Data Vital Signs (Past 12 Hours) Vital Signs Temp Pulse Pulse Resp BP Pulse Ox O2 Del Method 10/01/23 03:13 36.5 C 77 20 129/82 97 Room Air 09/30/23 23:21 36.8 C 76 18 122/84 94 Room Air 09/30/23 23:00 81 09/30/23 20:00 Room Air Resident Activity Tracking Resident Involvement: Resident Care Provided Care Provided: Adult [facility]
[2023-10-01] MEDS: HYDROmorphone INJ 0.5 MG/0.5 ML SYR IV PRN (08:49)
[2023-10-01] MEDS: KETOROLAC TROMETHAMINE 15 MG/ML VIAL IV PRN ×2 (08:49→19:57)
[2023-10-01] MEDS: AMOXICILLIN/CLAVULANATE 875 MG TAB PO SCH ×2 (08:50→16:55)
[2023-10-01] MEDS: NICOTINE 14 MG/24 HR PATCH TD SCH (08:50)
--- NOTE | 2023-10-01 09:28 | Pulmonology Progress Note ---
Date of Service October 01, 2023 Assessment & Plan (1) Empyema: Plan Impression: 38-year-old male smoker with empyema status post chest tube placement. Cultures are growing strep intermedius. He continues to demonstrate trapped physiology without expansion. Recommendations: 1. Empyema: Completed mist 2 protocol. The lung appears trapped. Patient is not anxious to pursue surgery and I think a conservative approach would be reasonable at this point time. Will monitor him over the next 24 hours and if his chest tube output remains at or below 100 cc per 24 hours, we will discontinue the tube and the patient can be dismissed and follow-up with me in the outpatient setting in 1 to 2 weeks with a repeat chest x-ray. If he should have new or progressive symptoms related to reaccumulation of the pleural fluid, he will of demonstrated a failure of conservative management and surgical intervention would be required at that point in time. The patient is in agreement with the plan as outlined. 2. Continue Augmentin for 2 weeks total therapy 3. Pain control per primary service. We will continue to follow with you. Admission and Anticipated Discharge Date Admission Date: September 26, 2023 Subjective Patient seen and examined. And reviewed. He is doing well. His pain control is adequate. No new respiratory issues. Review of Systems 2 Review of Systems: All systems reviewed & are unremarkable except as noted in Subjective Physical Exam 2 Constitutional: WD/WN, vitals as above Neck: trachea midline, no thyromegaly Respiratory: normal respiratory effort, lungs clear to auscultation Cardiovascular: RRR, no murmur, no edema Gastrointestinal (Abdomen): normal bowel sounds, soft, nontender, no hepatosplenomegaly Musculoskeletal: Extremities: extremities normal to inspection Skin: no rashes, warm and dry Lymphatic: no cervical lymphadenopathy Results & Data Results & Data Vital Signs (Past 12 Hours) Vital Signs Temp Pulse Pulse Resp BP Pulse Ox O2 Del Method 10/01/23 08:16 36.5 C 85 18 134/83 96 Room Air 10/01/23 03:13 36.5 C 77 20 129/82 97 Room Air 09/30/23 23:21 36.8 C 76 18 122/84 94 Room Air 09/30/23 23:00 81 Chest tube output over the last 24 hours less than 100 cc Laboratory Results 09/30/23 07:34 10/01/23 06:19 Microbiology 09/26/23 13:40 Pleural Fluid Gram Stain - Final 09/26/23 13:40 Pleural Fluid Aerobic and Anaerobic Culture - Preliminary Streptococcus intermedius Gram positive bacilli 09/26/23 13:30 Blood Aerobic Blood Culture - Preliminary No growth in Aerobic bottle after 48 hours. 09/26/23 13:30 Blood Anaerobic Blood Culture - Preliminary No growth in Anaerobic bottle after 48 hours. 09/26/23 12:27 Blood Aerobic Blood Culture - Preliminary No growth in Aerobic bottle after 48 hours. 09/26/23 12:27 Blood Anaerobic Blood Culture - Preliminary No growth in Anaerobic bottle after 48 hours. 09/26/23 13:15 Sputum, Expectorated Gram Stain - Final 09/26/23 13:15 Sputum, Expectorated Sputum Culture - Final Moderate normal loly. 09/26/23 13:15 Sputum, Expectorated Acid Fast Bacilli Smear - Final Diagnostic Findings Chest x-ray from today demonstrated persistent trapped lung at the left lung base stable to slightly better. Tubes in good position. PG Care Time/CCT Total # of Minutes Spent Total Time Spent with Patient: Total time spent is greater than 50% in coordination of care (as documented) at patient's floor/unit and/or counseling patient: Coding Level of Care Code 01328 SUB INP/OBS CARE 2/35MIN Diagnoses Empyema J86.9
--- NOTE | 2023-10-01 13:00 | Billing Data ---
Date of Service October 01, 2023 Coding Level of Care Code 52605 IN/OBS CONSULT LVL 3,45M
[2023-10-02] MEDS: ACETAMINOPHEN 500 MG TAB PO SCH (05:38)
[2023-10-02 06:43] LABS: Hematocrit (blood only) 31.6 % (42.0-52.0); Mean Corpuscular Hemoglobin 26.6 pg (25.0-34.0); Mean Corpuscular Hgb Conc 31.6 g/dL (32.0-36.0); Mean Platelet Volume 8.9 fL (9.4-12.4); Platelet Count 310 K/uL (130-400); RDW Coefficient of Variation 17.1 % (11.5-14.5); RDW Standard Deviation 52.9 fL (36.4-46.3); Red Blood Count 3.76 M/uL (4.70-6.10); White Blood Count 8.16 K/ul (4.8-10.8)
[2023-10-02 07:05] LABS: BUN Creatinine Ratio 15.3 (10-20); Calcium 8.5 mg/dl (8.6-10.3); Creatinine Clr Calc Pharmacy 203.4 ml/min; Est GFR (African American) 146.8 ml/min; Est GFR (Non-African American) 126.6 ml/min; Potassium 3.8 mmol/L (3.5-5.1)
[2023-10-02] MEDS: KETOROLAC TROMETHAMINE 15 MG/ML VIAL IV PRN (08:30)
[2023-10-02] MEDS: HYDROmorphone INJ 0.5 MG/0.5 ML SYR IV PRN (08:31)
[2023-10-02] MEDS: NICOTINE 14 MG/24 HR PATCH TD SCH (08:32)
[2023-10-02] MEDS: AMOXICILLIN/CLAVULANATE 875 MG TAB PO SCH (08:32)
--- NOTE | 2023-10-02 12:13 | Procedure Note ---
Procedure Note Date of Service October 02, 2023 Note Procedure: Removal of 24 [place] chest tube on the left. Indication resolution of empyema Proceduralist Dr. Rutledge Estimated blood loss none Procedure the dressing was taken down. Stitches were released. On full expiration the catheter was removed and observed to be intact. An occlusive dressing was applied. The patient tolerated the procedure well without complication. Coding CPT Codes Pulmonary/Thoracic - Pulmonary and Thoracic: 69546 Remove lung catheter ([id number]) [facility] [place] Procedure Codes (Charges) Pulmonary/Thoracic Procedure 1: Pulmonary and Thoracic: 41663 Remove lung catheter
--- NOTE | 2023-10-02 12:13 | Hospitalist Progress Note ---
Date of Service October 02, 2023 Assessment & Plan (1) Empyema: Plan: - continue Augmentin, plan for total duration of 2 weeks - sputum with normal loly - pleural fluid growing streptococcus intermedius - blood cultures negative -completed mist 2 protocol - may need VATS for trapped lung if reaccumulation of pleural fluid, but not emergent at this time. - Appreciate pulmonology management of chest tube - Pain control with scheduled Tylenol, prn Dilaudid, prn Toradol (2) Smoker: Plan: Nicotine patch ordered Plan VTE Prophylaxis - deferred at present due to chest tube placement Diet - regular Admission and Anticipated Discharge Date Admission Date: September 26, 2023 Subjective Doing well this morning. No complaints. No pain. Anxious to get home. Review of Systems Review of Systems: As per above Physical Exam Physical Exam: Constitutional: well-appearing, no acute distress HEENT: NCAT, no conjunctival injection CV: regular rhythm, no murmur appreciated, extremities well-perfused Resp: no increased work of breathing. Decreased breath sounds left base with continued improvement MSK: no gross deformities appreciated Skin: warm, dry, no rash appreciated Neuro: alert, oriented, no focal neurologic deficit appreciated Results & Data Results & Data Vital Signs (Past 12 Hours) Vital Signs Temp Pulse Resp BP Pulse Ox O2 Del Method 10/02/23 11:34 37.0 C 82 18 129/85 97 Room Air 10/02/23 08:02 36.7 C 86 18 128/83 94 Room Air 10/02/23 03:27 36.6 C 73 18 122/83 97 Room Air Resident Activity Tracking Resident Involvement: Resident Care Provided Care Provided: Adult Hospital Medicine
--- NOTE | 2023-10-02 12:15 | Pulmonology Progress Note ---
Date of Service October 02, 2023 Assessment & Plan (1) Empyema: Plan Impression: 38-year-old male smoker with empyema status post chest tube placement. Cultures are growing strep intermedius. He continues to demonstrate trapped physiology without expansion. Recommendations: 1. Empyema: Completed mist 2 protocol. Will plan on pulling the chest tube today and completing 2 weeks of antimicrobial therapy. The patient understands the risk of potential reaccumulation of the empyema which would necessitate surgery. I would like to see him back in pulmonary clinic in 2 weeks with a follow-up chest x-ray. He was advised to return to the emergency room for increasing chest pain, shortness of breath, cough, fevers, chills, night sweats, or drainage from the prior thoracostomy site. He expressed understanding. 2. Continue Augmentin for 2 weeks total therapy 3. Pain control per primary service. Feel free to contact me with questions Admission and Anticipated Discharge Date Admission Date: September 26, 2023 Subjective Patient seen and examined. EMR reviewed. The patient clinically feels about the same. Output of the chest tube is decreased below 100 cc over the last 24 hours. Review of Systems 2 Review of Systems: All systems reviewed & are unremarkable except as noted in Subjective Physical Exam 2 Constitutional: WD/WN, vitals as above Neck: trachea midline, no thyromegaly Respiratory: normal respiratory effort, lungs clear to auscultation Cardiovascular: RRR, no murmur, no edema Gastrointestinal (Abdomen): normal bowel sounds, soft, nontender, no hepatosplenomegaly Musculoskeletal: Extremities: extremities normal to inspection Skin: no rashes, warm and dry Lymphatic: no cervical lymphadenopathy Results & Data Results & Data Vital Signs (Past 12 Hours) Vital Signs Temp Pulse Resp BP Pulse Ox O2 Del Method 10/02/23 11:34 37.0 C 82 18 129/85 97 Room Air 10/02/23 08:02 36.7 C 86 18 128/83 94 Room Air 10/02/23 03:27 36.6 C 73 18 122/83 97 Room Air Laboratory Results 10/02/23 05:58 10/02/23 05:58 PG Care Time/CCT Total # of Minutes Spent Total Time Spent with Patient: Total time spent is greater than 50% in coordination of care (as documented) at patient's floor/unit and/or counseling patient: Coding Level of Care Code 16159 SUB INP/OBS CARE MIN Diagnoses Empyema J86.9
--- NOTE | 2023-10-02 12:21 | Discharge Summary ---
Date of Service October 02, 2023 Admission HPI Per Admitting Provider Cheo Birmingham is a 38 year old male who presents to the ER with productive cough. He was recently seen in the ER on July 30 and diagnosed with pneumonia. He was treated with prednisone (5 day course) and albuterol inhaler as wheezing was noted on exam. Given doxycycline on discharge. He reports once finishing his antibiotics his symptoms came back the next day with worsening cough and shortness of breath on exertion. No chest pain, fever or chills. No nasal congestion or sinus pain. He is a current smoking with 1 pack/day. Patient initially seen in the ER while having chest tube inserted, reviewed and examined patient fully after chest tube insertion by pulmonology. Principal Diagnosis Empyema Discharge Exam Constitutional: well-appearing, no acute distress HEENT: NCAT, no conjunctival injection CV: regular rhythm, no murmur appreciated, extremities well-perfused, no LE edema Resp: no increased work of breathing. Decreased breath sounds left base with continued improvement MSK: no gross deformities appreciated Skin: warm, dry, no rash appreciated Neuro: alert, oriented, no focal neurologic deficit appreciated Discharge Data Allergies Allergy/AdvReac Type Severity Reaction Status Date / Time No Known Allergies Allergy Verified 09/26/23 14:09 Consultations 09/26/23 14:50 Consult Pulmonology Stat 09/26/23 15:09 ED Decision to Admit Stat Ordered Studies 09/26/23 12:16 CT angio chest PE protocol Stat 09/26/23 17:01 CT chest diagnostic wo con Stat 09/29/23 09:59 CT chest diagnostic wo con Routine Laboratory Results WBC 8.16 K/ul (4.8-10.8) 10/02/23 05:58 RBC 3.76 M/uL (4.70-6.10) L 10/02/23 05:58 Hgb 10.0 g/dl (14.0-18.0) L 10/02/23 05:58 Hct 31.6 % (42.0-52.0) L 10/02/23 05:58 MCV 84.0 fL (80.0-100.0) 10/02/23 05:58 MCH 26.6 pg (25.0-34.0) 10/02/23 05:58 MCHC 31.6 g/dL (32.0-36.0) L 10/02/23 05:58 RDW Std Deviation 52.9 fL (36.4-46.3) H 10/02/23 05:58 RDW Coeff of Logan 17.1 % (11.5-14.5) H 10/02/23 05:58 Plt Count 310 K/uL (130-400) 10/02/23 05:58 MPV 8.9 fL (9.4-12.4) L 10/02/23 05:58 Immature Gran % (Auto) 0.6 % 09/29/23 06:03 Neut % (Auto) 67.5 % 09/29/23 06:03 Lymph % (Auto) 20.3 % 09/29/23 06:03 Lander % (Auto) 9.0 % 09/29/23 06:03 Eos % (Auto) 2.1 % 09/29/23 06:03 Baso % (Auto) 0.5 % 09/29/23 06:03 Neut # (Auto) 4.45 K/uL (1.40-6.50) 09/29/23 06:03 Lymph # (Auto) 1.34 K/uL (1.20-3.40) 09/29/23 06:03 Lander # (Auto) 0.59 K/uL (0.11-0.59) 09/29/23 06:03 Eos # (Auto) 0.14 K/uL (0.00-0.50) 09/29/23 06:03 Baso # (Auto) 0.03 K/uL (0.00-0.20) 09/29/23 06:03 Immature Gran # (Auto) 0.04 K/uL (0.01-0.20) 09/29/23 06:03 ESR 96 mm/hr (0-15) H 09/26/23 12:13 Sodium 139 mmol/L (136-145) 10/02/23 05:58 Potassium 3.8 mmol/L (3.5-5.1) 10/02/23 05:58 Chloride 106 mmol/L (98-107) 10/02/23 05:58 Carbon Dioxide 30 mmol/L (21-32) 10/02/23 05:58 Anion Gap 3 (3-11) 10/02/23 05:58 BUN 9 mg/dl (6-23) 10/02/23 05:58 Creatinine 0.59 mg/dl (0.6-1.4) L 10/02/23 05:58 Est Cr Clr Drug Dosing 203.4 ml/min 10/02/23 05:58 Est GFR ( Amer) 146.8 ml/min 10/02/23 05:58 Est GFR (Non-Af Amer) 126.6 ml/min 10/02/23 05:58 BUN/Creatinine Ratio 15.3 (10-20) 10/02/23 05:58 Glucose 90 mg/dl (70-99(Fasting)) 10/02/23 05:58 Lactate 1.1 mmol/L (0.4-2.0) 09/26/23 14:10 Calcium 8.5 mg/dl (8.6-10.3) L 10/02/23 05:58 Magnesium 1.8 mg/dl (1.7-2.4) 09/29/23 06:03 Total Bilirubin 0.3 mg/dl (0.2-1.0) 09/29/23 06:03 AST 14 U/L (13-39) 09/29/23 06:03 ALT 8 U/L (7-52) 09/29/23 06:03 Alkaline Phosphatase 65 U/L (34-104) 09/29/23 06:03 Lactate Dehydrogenase 166 U/L (86-244) 09/26/23 12:13 Troponin I High Sens 5.5 pg/ml (0-20) 09/26/23 12:13 C-Reactive Protein 10.51 mg/dl (0-0.5) H 09/26/23 12:13 Total Protein 6.5 gm/dl (6.0-8.3) 09/29/23 06:03 Albumin 2.5 gm/dl (3.4-5.0) L 09/29/23 06:03 Globulin 4.0 gm/dl (2.5-4.0) 09/29/23 06:03 Albumin/Globulin Ratio 0.6 (0.9-2) L 09/29/23 06:03 Procalcitonin 0.07 ng/ml (0-0.5) 09/26/23 12:13 Pleural pH (7.3-7.4) 09/26/23 13:40 Pleural Total Protein < 3.0 gm/dl 09/26/23 13:40 Pleural LDH > 72418 U/L 09/26/23 13:40 Pleural Glucose < 10 mg/dl 09/26/23 13:40 Nasal Screen MRSA (PCR) Negative (Negative) 09/26/23 Unknown Random Vancomycin 10.6 mcg/ml (10-20) 09/29/23 06:03 Adenovirus (PCR) Not Detected (NotDetected) 09/26/23 12:22 B. pertussis DNA (PCR) Not Detected (NotDetected) 09/26/23 12:22 B.parapertussis DNA PCR Not Detected (NotDetected) 09/26/23 12:22 C. pneumoniae DNA (PCR) Not Detected (NotDetected) 09/26/23 12:22 Coronavirus OC43 (PCR) Not Detected (NotDetected) 09/26/23 12:22 Coronavirus HKU1 (PCR) Not Detected (NotDetected) 09/26/23 12:22 Coronavirus 229E (PCR) Not Detected (NotDetected) 09/26/23 12:22 SARS-CoV-2 (PCR) Not Detected (NotDetected) 09/26/23 12:22 Coronavirus NL63 (PCR) Not Detected (NotDetected) 09/26/23 12:22 Human Metapneumovir PCR Not Detected (NotDetected) 09/26/23 12:22 Influenza Type A (PCR) Not Detected (NotDetected) 09/26/23 12:22 Influenza Type B (PCR) Not Detected (NotDetected) 09/26/23 12:22 M. pneumoniae (PCR) Not Detected (NotDetected) 09/26/23 12:22 Parainfluenza 1 (PCR) Not Detected (NotDetected) 09/26/23 12:22 Parainfluenza 2 (PCR) Not Detected (NotDetected) 09/26/23 12:22 Parainfluenza 3 (PCR) Not Detected (NotDetected) 09/26/23 12:22 Parainfluenza 4 (PCR) Not Detected (NotDetected) 09/26/23 12:22 RSV (PCR) Not Detected (NotDetected) 09/26/23 12:22 Entero/Rhino (PCR) Not Detected (NotDetected) 09/26/23 12:22 TB Test (QFT) Gold Plus NEGATIVE (NEGATIVE) 09/26/23 14:10 TB Test (QFT) Nil 0.01 IU/mL 09/26/23 14:10 TB Test Mitogen - Nil >10.00 IU/mL 09/26/23 14:10 TB Test Ag - Nil 1 0.01 IU/mL 09/26/23 14:10 TB Test Ag - Nil 2 0.01 IU/mL 09/26/23 14:10 Impressions Chest CTA 09/26/23 12:16 CHEST CTA for PULMONARY ARTERIES CT DOSE: 1067.14 mGy.cm HISTORY: Shortness of breath, tachy, left cavitary pneumonia? TECHNIQUE: Multiaxial CT images of the chest were performed following the intravenous administration of contrast to evaluate the pulmonary arteries. 3D/Maximal intensity projection images were also obtained. Sagittal and coronal reformations were also reviewed. A dose lowering technique was utilized adhering to the principles of ALARA. COMPARISON STUDY: Chest 09/26/2023. FINDINGS: No acute fractures within the chest. Mild anterior wedging at T11 is likely chronic. There is an old, healed right clavicle fracture. No bony destructive changes identified. There is a 2.2 cm cyst/nodule along the inferior aspect of the left thyroid lobe. This is best seen on image 245. Normal esophagus. Limited views of the upper abdomen demonstrate a normal liver, spleen, and adrenal glands. There is mild right mediastinal shift. The heart is normal in size. No pericardial effusion. No right pleural effusion is. A few prominent mediastinal and left hilar lymph nodes. These remain subcentimeter in short axis diameter. These are likely reactive. Normal caliber thoracic aorta with no evidence for a dissection. No filling defects within the pulmonary arteries to suggest a pulmonary embolus. Partial opacities of the left lower lobe bronchi. There is mild emphysema. There are tree-in-bud nodular opacities seen within the right middle lobe and right lower lobe consistent with an infectious bronchiolitis. There is consolidation within the base of the left lower lobe and lingula. This likely represents a combination of compressive atelectasis and a pneumonia. Loculated peripheral gas and fluid collection within the mid to lower left pleural space. The left pleural lining is thickened. Therefore, this is consistent with a loculated moderate to large empyema. There are additional smaller components of loculated gas and fluid within the left upper pleural space also suspicious for an empyema. This accounts for the mild right mediastinal shift. IMPRESSION: 1. Moderate to large loculated gas and fluid collection within the left pleural space which is highly suspicious for an empyema. 2. Consolidation within the base of the left lower lobe/lingula. This likely represents a combination of compressive atelectasis from the suspected empyema and a superimposed pneumonia. 3. Tree-in-bud nodular opacities within the right lung base consistent with a mild infectious bronchiolitis. 4. No evidence for a pulmonary embolus. 5. Mild right mediastinal shift from the left-sided empyema. 6. Additional findings as described above. ACT 112: Negative or not required by law. Electronically signed by: Cecilio Linton M.D. 09/26/2023 1:[address] 09/29/23 09:59 CT chest diagnostic wo con CT DOSE: 775.47 mGy.cm HISTORY: Follow-up left-sided empyema TECHNIQUE: Multiaxial CT images of the chest were performed without contrast. A dose lowering technique was utilized adhering to the principles of ALARA. COMPARISON: Chest CT 09/26/2023. FINDINGS: A left-sided chest tube is again noted and is unchanged in position. The loculated left basilar pleural gas and fluid collection remains unchanged. There is an a small amount of fluid remaining within the pleural collection, unchanged. This demonstrates a thickened pleural lining and is consistent with an empyema. A small left pleural effusion is again noted. Stranding/edema within the left lateral chest wall and subcutaneous emphysema has progressed. Prominent mediastinal lymph nodes remain stable. Normal esophagus. Normal caliber thoracic aorta. The heart is normal in size. No pericardial effusion. Old right clavicle fracture again noted. No acute fractures. No suspicious osseous lesions. Limited views of the upper abdomen demonstrate a normal liver and adrenal glands. The spleen may be mildly enlarged. Small clusters of tree-in-bud nodular opacities seen within the right lung base. This has improved in the interval. Consolidation within the base of the left lower lobe remains unchanged. Partial opacification of the left lower lobe bronchi again noted. The trachea is patent. Focal irregular opacity involving the left upper lobe and superior segment left lower lobe again noted. This extends across the fissure and contains a small amount of fluid and gas. This measures approximately 4.7 cm and is best seen image 82. This is similar to the prior study. Cystic focus adjacent to the left thyroid lobe remain stable. IMPRESSION: 1. No significant change in the loculated left basilar gas and fluid collection which contains a small amount of residual fluid consistent with the patient's known empyema. The left chest tube remains in good position. 2. Left lateral chest wall subcutaneous emphysema and a small amount of fluid/stranding has slightly progressed. 3. Left lower lobe basilar consolidation persists. This may represent atelectasis. 4. No change in the 4.7 cm irregular opacity extending across the left major fissure and involving the left upper and lower lobes as described above. This contains a small amount of fluid and gas. This may represent a small residual loculated empyema. Follow-up recommended to ensure resolution. 5. Scattered tree-in-bud nodular opacities within the right lung base have improved consistent with a resolving pneumonitis. ACT 112: Negative or not required by law. Electronically signed by: Cecilio Linton M.D. 09/29/2023 11:39 AM Chest X-Ray 10/01/23 08:00 SINGLE VIEW CHEST CLINICAL HISTORY: Chest tube. Empyema. FINDINGS: An AP, portable, upright chest radiograph is compared to study dated 09/30/2023 and correlated with chest CT dated 09/29/2023. The cardiomediastinal silhouette is unremarkable. A left-sided chest tube is unchanged in position. There is a persistent gas and fluid-containing collection at the left lung base with associated left basilar consolidation. This is similar in appearance to yesterday. The right lung appears clear. No right-sided pneumothorax is seen. There is chronic deformity of the right clavicle. Subcutaneous emphysema is noted in the left chest wall. IMPRESSION: 1. A left-sided chest tube is unchanged in position. 2. A gas and fluid containing pleural collection at the left lung base is unchanged with associated left basilar consolidation. 3. The right lung appears clear. ACT 112: Negative or not required by law. Electronically signed by: Aniceto Dahl M.D. 10/01/2023 7:09 AM Hospital Course (1) Empyema: (1) Empyema: - noted on imaging upon admission - chest pain was placed -completed mist 2 protocol - sputum with normal loly - pleural fluid growing streptococcus intermedius - blood cultures negative - continue to note trapped lung on imaging; may need surgery in the future if fluid reaccumulates with conservative management -Plan for a total duration of antibiotics of 14 days; will discharge with Augmentin, last day /3 - F/u with pulm in 2 weeks; repeat CXR at that time (2) Smoker: Nicotine patch ordered while inpatient. Recommend smoking cessation (2) Smoker: Total Time Total Time Spent Total Time Spent (In Minutes): <30 Discharge Plan Discharge Items Patient Disposition: Home - Self-Care Reason For Visit: COMPLEX PLEURAL EFFUSION Discharge Diagnosis: Empyema Activity: Per Instructions section Non-emergency contact: Primary Care Provider Call non-emergency contact if: you have any medication questions and your symptoms worsen Follow-up/Referrals: Anu Geiger MD [Primary Care Provider] - 10/11/23 11:30 am Ilan Rutledge MD [Physician] - (2 week f/u. ) Diet: Regular Addtl Attending Provider Instructions: We are going to discharge you with oral antibiotics. We sent a prescription for Augmentin to the pharmacy for you. You should take it twice a day, you next dose will be this evening. The last day of antibiotics will be 10/10. Dr. Rutledge would like to see you in the office in 2 weeks. I put I referral in for this appointment. If you do not hear from them by early next week, please give his office a call to make an appointment. The phone number for his office is [phone] ([facility]). You should return emergency room if you have increasing chest pain, shortness of breath, cough, fevers, chills, night sweats, or drainage from the prior thoracostomy site. Pending Studies at Discharge: No Stand-Alone Forms: My [facility] Kites, Smoking Cessation Medications and DC Order Prescriptions: New amoxicillin-pot clavulanate 875-125 mg Tablet 1 tab PO BIDM 8 Days Qty: 17 0RF Continued albuterol sulfate 90 mcg/actuation HFA aerosol inhaler 2 inha INH QID PRN (Reason: shortness of breath or wheezing) Qty: 1 0RF ibuprofen 200 mg Tablet 200 mg PO Q6H PRN (Reason: Pain) Discharge Orders: Discharge Order (Routine); Ordered 10/02/23 Ordered By: Marion Slade Admission Data Admit Date/Time: 09/26/23 14:55 Attending Provider: Isac Kaur Admit Provider: Glynn Kulkarni Primary Care Provider: Anu Geiger Other Providers: Delphine Lyons; Glynn Kulkarni Supervising Physician Co-Signing Physician Notes I personally examined the patient and verified all skelton points of history and exam, discussed case, and agree with decision making with Dr Slade Chest tube has been removed. Feels good and would like to go home. Pulmonary input greatly appreciated. Vitals noted, in general he is awake and alert pleasant no distress. HEENT normocephalic atraumatic mucous membranes moist. Breathing unlabored no accessory muscle use. Neuro without focal deficits. Empyemanow post broad antibiotics and chest tube drainage, continue mist 2 protocol. Stable for home, pulmonary follow-up in the near future, continue Augmentin for now. Outlined "red flags" that would necessitate being evaluated SULMA. Patient expressed understanding Resident Activity Tracking Resident Involvement: Resident Care Provided Care Provided: Adult Hospital Medicine
--- NOTE | 2023-10-02 13:19 | Billing Data ---
Date of Service October 02, 2023 Coding Level of Care Code 85691 IN/OBS DISCH 30 MIN/LESS
[2023-10-02] MEDS ORDERED: AMOXICILLIN/CLAVULANATE 875MG HOME PACK PO ONE (14:01)
[2023-10-05 22:27] LABS: Legionella pneumoph IgM, IFA <1:256 TITER; Pneumococcal IgG Type 12 (12F) <0.3; Pneumococcal IgG Type 14 <0.3; Pneumococcal IgG Type 19 (19F) 0.6; Pneumococcal IgG Type 23 (23F) 0.3; Pneumococcal IgG Type 26 (6B) 0.4; Pneumococcal IgG Type 3 <0.3; Pneumococcal IgG Type 4 <0.3; Pneumococcal IgG Type 5 0.3; Pneumococcal IgG Type 51 (7F) 0.6; Pneumococcal IgG Type 56 (18C) 0.3; Pneumococcal IgG Type 68 (9V) <0.3; Pneumococcal IgG Type 8 <0.3; Pneumococcal IgG Type 9 (9N) <0.3
== END 2023-10-02 14:43 | disposition home or self-care (01) | DRG 179 ==
LOC: ED 11:32 → EDINP 14:55 → SUATTDRO 14:55 → 2W 17:30 → 2E 09-27 20:42

== ENCOUNTER 2025-05-15 13:09 | Inpatient (IN) ==
[2025-05-15 13:58] LABS: Hematocrit (blood only) 41.2 % (42.0-52.0); Hemoglobin 14.5 g/dl (14.0-18.0); Immature Granulocytes # (auto) 0.02 K/uL (0.01-0.20); Immature Granulocytes % (auto) 0.2 %; Mean Corpuscular Hemoglobin 31.5 pg (25.0-34.0); Mean Corpuscular Volume 89.6 fL (80.0-100.0); Platelet Count 100 K/uL (130-400); RDW Standard Deviation 44.0 fL (36.4-46.3); Red Blood Count 4.60 M/uL (4.70-6.10); White Blood Count 9.66 K/ul (4.8-10.8)
[2025-05-15 14:09] LABS: Alanine Aminotransferase 40.0 U/L (7-52); Albumin Globulin Ratio 1.1 (0.9-2); Alkaline Phosphatase 85.0 U/L (34-104); Anion Gap 14.0 (3-11); Bilirubin,Total 3.2 mg/dl (0.2-1.0); Blood Urea Nitrogen 9.0 mg/dl (6-23); Calcium 9.9 mg/dl (8.6-10.3); Carbon Dioxide 29.0 mmol/L (21-32); Chloride 90.0 mmol/L (98-107); Creatinine Clr Calc Pharmacy 157.0 ml/min; Globulin 4.0 gm/dl (2.5-4.0); Glucose 165.0 mg/dl (70-99(Fasting)); Potassium 2.9 mmol/L (3.5-5.1); Sodium 133.0 mmol/L (136-145); Total Protein 8.6 gm/dl (6.0-8.3)
--- NOTE | 2025-05-15 14:11 | XRay Report ---
SINGLE VIEW CHEST CLINICAL HISTORY: Illness. History of lung infection. FINDINGS: A PA chest radiograph is compared to study dated 10/15/2023. Correlation is made with chest CT dated 09/29/2023. The cardiomediastinal silhouette is unremarkable. There is a loculated appearing left pleural effusion at the left lung base with left basilar consolidation. The right lung appears clear. No pneumothorax is seen. There is chronic posttraumatic deformity of the right clavicle. IMPRESSION: 1. There is a loculated appearing pleural effusion at the left lung base with left basilar consolidat ion. This was also seen in 2022 and may be chronic. 2. The right lung appears clear. ACT 112: Negative or not required by law. Electronically signed by: Aniceto Dahl M.D. 05/15/2025 2:10 PM
--- NOTE | 2025-05-15 14:46 | Emergency Department Note ---
Impression & Plan Acute alteration in mental status, Alcohol intoxication, Hypokalemia, Hypomagnesemia ED Provider Note NAME: LAUREN ACEVEDO AGE: 40 SEX: M : 1985 ARRIVES VIA: Walk-In INFORMANT: Patient, the patient's mother ED PROVIDER(S): Brian Clinton DO CHIEF COMPLAINT: Altered mental status HPI: The patient is a 40-year-old male who does have a history of alcohol use who presented to the emergency department for an evaluation of altered mental status. The patient's mother came with him. She is very concerned because he has a history of an empyema and was concerned he may be experiencing an infection. The patient has been having hallucinations which are auditory as well as visual. He is having thoughts of wanting to hurt people but it sounds though these stories may have no basis and the patient left to go to a local drinking establishment with a gun to find someone. The patient denies having any head trauma. He denies having any headache nausea or vomiting. He does admit to alcohol use as well as marijuana use. ROS: See above HPI for pertinent positives & negatives. A total of 10 systems reviewed and were otherwise negative. PAST MEDICAL HISTORY: See Below PAST SURGICAL HISTORY: See Below FAMILY HISTORY: See Below SOCIAL HISTORY: See Below HOME MEDICATIONS: See Below ALLERGIES: See Below VITALS: See Below PHYSICAL EXAMINATION: GENERAL: The patient is awake and alert. He is somewhat anxious appearing. EYES: The conjunctivae are injected bilaterally. The pupils are round and reactive. EARS, NOSE, MOUTH AND THROAT: The nose is without any evidence of any deformity. NECK: The neck is nontender and supple. RESPIRATORY: Normal respiratory effort is noted there is no evidence of wheezing rhonchi or rales CARDIOVASCULAR: Regular rate and rhythm noted there no murmurs rubs or gallops normal S1 normal S2. GASTROINTESTINAL: The abdomen is soft. Abdomen is nontender. MUSCULOSKELETAL/EXTREMITIES: There is no evidence of gross deformity full range of motion is noted in the hips and shoulders. SKIN: There is no obvious evidence of any rash. There are no petechiae, pallor or cyanosis noted. NEUROLOGIC: Patient is awake alert and oriented x3 strength is symmetric patellar reflexes are 2+ bilaterally PSYCH: The patient makes good eye contact mostly evaluation. The patient is at this time denying any suicidal homicidal ideation. MEDICAL DECISION MAKING: The patient is a 40-year-old male who presented to the emergency department with multiple complaints. His mother presented with him and she was very concerned as the patient was not making sense. He is seen to have been experiencing hallucinations. The patient does have a history of alcohol use. Today his alcohol is very elevated in the emergency department but clinically he appeared to be not intoxicated. I discussed patient's laboratory and radiographic studies with him. He was treated with electrolyte replacement. He was reevaluated multiple times. His mother is very concerned that there could be a psychiatric component as well. The patient is not medically cleared I discussed his condition with the [facility] hospitalist as well as the emergency department also bilingual patient support caseworker. He was evaluated by the mental health bilingual patient support caseworker. They do feel that an inpatient mental health evaluation is appropriate at this time. Triage Nursing notes reviewed. Prior medical records reviewed Vital Signs: reviewed and remarkable for no significant abnormalities Differential diagnosis: Infection, hypoglycemia, electrolyte abnormalities, overdose, toxicologic, cardiac sources, intracerebral event, neurologic, trauma, as well as other pathologies. ER treatment provided: See below Diagnostics interpreted by me: ECG: EKG was obtained in the emergency department. My interpretation is normal sinus rhythm at 78 bpm. There is no ectopy. There is no acute ST segment abnormalities noted. This was compared to a tracing from September 26, 2023. There is a decrease in the rate otherwise no changes were noted. Cardiac Monitoring: An order was placed for continuous cardiac monitoring. The monitor shows a rate of 79 bpm with sinus rhythm. Laboratory studies: As stated above and show below. Imaging studies: See below. Radiographic imaging was reviewed by myself Consultation(s): I discussed this case with Caroline who is on-call for the [facility] hospitalist group. Past Med/Surg History Problem List (Updated 05/15/25 @ 17:07 by Tala Slaughter PA-C) Auditory hallucinations Hypomagnesemia (Acute) Hypokalemia (Acute) Alcohol intoxication (Acute) Acute alteration in mental status (Acute) COPD (chronic obstructive pulmonary disease) Encounter for examination following treatment at hospital Smoker Empyema (Acute) Elevated blood pressure reading Otitis media, unspecified, right ear Acute sinusitis Medical History Sepsis Gout Surgical History H/O chest tube placement No history of previous surgery Family History Denies family history of Ovarian cancer Prostate cancer Myocardial infarction Breast cancer Colorectal cancer Social History Smoking Status: Current every day smoker Tobacco Type: Cigarettes packs per day: 1.5; Cigarettes Per Day: 1 pack; Second Hand Exposure: No; Do You Dip or Chew Tobacco: No; Hx Alcohol Use: Yes Alcohol type: hard liquor Hx Substance Use: Yes Last Used Substance: Unknown Preferred Language: Urdu Communication Ability: Effective Senior Systems Administrator Required: No Beliefs That Will Affect Care: None marital status: Single Current Living Situation: Alone Current Living Situation Comment: lives in an apartment that is connected to his mother's home current occupational status: employed Feels Safe at Home: Yes Dental Care, Regularly: No Seatbelt Use: sometimes Assistive Devices: None Allergies Allergies Allergy/AdvReac Type Severity Reaction Status Date / Time oxycodone [From OxyContin] AdvReac Severe Paranoid Unverified 05/15/25 16:56 and itching Home Meds Home Medications Medication Instructions Recorded Confirmed No Known Home Medications 05/15/25 05/15/25 Results & Data (ED) Vital Signs Vital Signs - 24 hr 05/15/25 13:20 05/15/25 15:40 05/15/25 15:44 Temperature 37.1 C Temperature Source Temporal Artery Scan Pulse Rate 100 H 82 82 Respiratory Rate 18 18 Respiratory Effort / Characteristics Non-Labored Spontaneous Respiratory Depth Normal Respiratory Pattern Regular Blood Pressure 131/85 116/78 Blood Pressure Mean 100 90 Pulse Oximetry 96 97 Oxygen Delivery Method Room Air Sepsis Recent Fever Within 48 Hours No Sepsis New/Unexplained Change in Mental Status N/A Sepsis Action Taken by Nursing No Action Required 05/15/25 16:00 05/15/25 16:00 05/15/25 16:30 Temperature Temperature Source Pulse Rate 82 81 82 Respiratory Rate 16 16 17 Respiratory Effort / Characteristics Respiratory Depth Respiratory Pattern Blood Pressure 120/82 120/82 119/75 Blood Pressure Mean 99 99 89 Pulse Oximetry 98 98 95 Oxygen Delivery Method Sepsis Recent Fever Within 48 Hours Sepsis New/Unexplained Change in Mental Status Sepsis Action Taken by [facility] Medications Current Medication List: was personally reviewed by me Laboratory Data Attestation: I reviewed the patient's lab results. 05/15/25 13:34 05/15/25 13:34 Lab Results 05/15/25 Range/Units 13:34 WBC 9.66 (4.8-10.8) K/ul RBC 4.60 L (4.70-6.10) M/uL Hgb 14.5 (14.0-18.0) g/dl Hct 41.2 L (42.0-52.0) % MCV 89.6 (80.0-100.0) fL MCH 31.5 (25.0-34.0) pg MCHC 35.2 (32.0-36.0) g/dL RDW Std Deviation 44.0 (36.4-46.3) fL RDW Coeff of Logan 14.2 (11.5-14.5) % Plt Count 100 L (130-400) K/uL MPV 10.0 (9.4-12.4) fL Immature Gran % (Auto) 0.2 % Neut % (Auto) 53.5 % Lymph % (Auto) 24.2 % Pacific % (Auto) 20.5 % Eos % (Auto) 1.3 % Baso % (Auto) 0.3 % Neut # (Auto) 5.16 (1.40-6.50) K/uL Lymph # (Auto) 2.34 (1.20-3.40) K/uL Pacific # (Auto) 1.98 H (0.11-0.59) K/uL Eos # (Auto) 0.13 (0.00-0.50) K/uL Baso # (Auto) 0.03 (0.00-0.20) K/uL Immature Gran # (Auto) 0.02 (0.01-0.20) K/uL Sodium 133 L (136-145) mmol/L Potassium 2.9 L (3.5-5.1) mmol/L Chloride 90 L (98-107) mmol/L Carbon Dioxide 29 (21-32) mmol/L Anion Gap 14 H (3-11) BUN 9 (6-23) mg/dl Creatinine 0.73 (0.6-1.4) mg/dl Est Cr Clr Drug Dosing 157.0 ml/min eGFR 116.49 BUN/Creatinine Ratio 12.3 (10-20) Glucose 165 H (70-99(Fasting)) mg/dl Calcium 9.9 (8.6-10.3) mg/dl Magnesium 1.2 L (1.7-2.4) mg/dl Total Bilirubin 3.2 H (0.2-1.0) mg/dl AST 118 H (13-39) U/L ALT 40 (7-52) U/L Alkaline Phosphatase 85 (34-104) U/L Troponin I High Sens 7.6 (0-20) pg/ml Total Protein 8.6 H (6.0-8.3) gm/dl Albumin 4.6 (3.4-5.0) gm/dl Globulin 4.0 (2.5-4.0) gm/dl Albumin/Globulin Ratio 1.1 (0.9-2) Salicylates < 3.0 L (3.0-30) mg/dl Acetaminophen < 3 L (10-30) ug/ml Ethyl Alcohol mg/dL 256.0 H (<10.0) mg/dl Administered Medications Chlordiazepoxide HCl (Chlordiazepoxide Hcl 10 Mg Cap) 10 mg PO TID JAVAD Stop: 06/14/25 16:59 Last Admin: 05/15/25 17:15 Dose: 10 mg Documented By: ANT Sodium Chloride (Nss) 1,000 mls @ 80 mls/hr IV .[id number] [facility] Stop: 05/18/25 17:14 Last Admin: 05/15/25 17:18 Dose: 80 mls/hr Documented By: ANT Discontinued Medications Gabapentin (Gabapentin 800mg Alcohol Withdrawal Load) 1 each PO NOW STA; Protocol Stop: 05/15/25 16:50 Last Admin: 05/15/25 17:10 Dose: Not Given Documented By: ANT Gabapentin (Gabapentin 400 Mg Cap) 800 mg PO NOW ONE Stop: 05/15/25 16:50 Last Admin: 05/15/25 17:10 Dose: Not Given Documented By: ANT Gabapentin (Gabapentin 600 Mg Tab) 600 mg PO NOW ONE Stop: 05/15/25 16:55 Last Admin: 05/15/25 17:15 Dose: 600 mg Documented By: ANT Sodium Chloride (Nss) 1,000 mls @ 999 mls/hr IV .Q1H1M ONE Stop: 05/15/25 15:31 Last Infusion: 05/15/25 16:36 Dose: Infused Documented By: Admin: 05/15/25 15:19 Dose: 999 mls/hr Documented By: ANT Thiamine HCl 200 mg/ Sodium (Chloride) 52 mls @ 210 mls/hr IV NOW STA Stop: 05/15/25 14:45 Last Infusion: 05/15/25 15:57 Dose: Infused Documented By: Admin: 05/15/25 15:37 Dose: 210 mls/hr Documented By: ANT Potassium Chloride (K Wu / Wtr) 10 meq in 100 mls @ 100 mls/hr IV Q1H JAVAD Stop: 05/15/25 16:44 Last Infusion: 05/15/25 17:10 Dose: Infused Documented By: Admin: 05/15/25 16:18 Dose: 100 mls/hr Documented By: Infusion: 05/15/25 16:18 Dose: Infused Documented By: Admin: 05/15/25 15:19 Dose: 100 mls/hr Documented By: ANT Magnesium Sulfate/Dextrose (Magnesium Sulfate / D5w) 1 gm in 100 mls @ 100 mls/hr IV NOW STA Stop: 05/15/25 15:43 Last Infusion: 05/15/25 16:30 Dose: Infused Documented By: Admin: 05/15/25 15:37 Dose: 100 mls/hr Documented By: ANT Ceftriaxone Sodium (Rocephin) 2,000 mg in 50 mls @ 100 mls/hr IV NOW STA Stop: 05/15/25 15:42 Last Infusion: 05/15/25 15:45 Dose: Infused Documented By: Admin: 05/15/25 15:20 Dose: 100 mls/hr Documented By: ANT Potassium Chloride (Potassium Chloride 10 Meq Tabcr) 20 meq PO NOW STA Stop: 05/15/25 14:32 Last Admin: 05/15/25 15:37 Dose: 20 meq Documented By: ANT Imaging Data Attestation: I personally reviewed and interpreted this imaging study as follows: My Impression: CT of the brain was obtained in the emergency department. My interpretation is no intracranial hemorrhage or mass effect, final report below. Radiologist's Impression: Chest X-Ray 05/15/25 13:27 SINGLE VIEW CHEST CLINICAL HISTORY: Illness. History of lung infection. FINDINGS: A PA chest radiograph is compared to study dated 10/15/2023. Correlation is made with chest CT dated 09/29/2023. The cardiomediastinal silhouette is unremarkable. There is a loculated appearing left pleural effusion at the left lung base with left basilar consolidation. The right lung appears clear. No pneumothorax is seen. There is chronic posttraumatic deformity of the right clavicle. IMPRESSION: 1. There is a loculated appearing pleural effusion at the left lung base with left basilar consolidation. This was also seen in 2022 and may be chronic. 2. The right lung appears clear. ACT 112: Negative or not required by law. Electronically signed by: Aniceto Dahl M.D. 05/15/2025 2:[address] 05/15/25 14:31 CT SCAN OF THE BRAIN WITHOUT IV CONTRAST CLINICAL HISTORY: Altered mental status. COMPARISON STUDY: Head CT January 26, 2022. TECHNIQUE: Unenhanced axial CT scan of the brain was performed from the vertex to the skull base. A dose lowering technique was utilized adhering to the principles of ALARA. CT DOSE: 547.75 mGy.cm FINDINGS: Brain parenchyma: No acute intracranial hemorrhage, midline shift or mass effect is present. Victor-white matter differentiation is preserved. There are no extra- axial fluid collections. There are no findings to suggest acute dural sinus thrombosis or acute territorial infarct. Ventricles, sulci, cisterns: There is no hydrocephalus. The basal cisterns are patent. Calvarium: Unremarkable. Sinuses and mastoids: Visualized portions of the left maxillary sinus are opacified. There is wall thickening of the left maxillary sinus. The abnormality extends into the left nasal cavity. This may represent an antrochoanal polyp. Near complete opacification of the left ethmoid sinuses has increased since prior exam. There is also mucosal thickening with small air-fluid level within the left frontal sinus. Orbits: The bony orbits are grossly intact. IMPRESSION: 1. No acute intracranial findings. 2. Extensive left sinus opacification, partially imaged on this exam, which has progressed since prior CT. ACT 112: Negative or not required by law. Electronically signed by: Dimitri Irwin M.D. 05/15/2025 3:01 PM Discharge Plan Visit Data Chief Complaint: Illness Stated Complaint: POSSIBLE SEPSIS, DELUSIONAL ED Provider: Brian Clinton Discharge Problem: Acute alteration in mental status, Alcohol intoxication, Hypokalemia, Hypomagnesemia Patient Disposition: Admitted As Inpatient Condition: Fair Discharge Instructions Interventions: ED Discharge Assessment Last Done: 05/15/25 17:43
[2025-05-15 14:51] LABS: Acetaminophen < 3 ug/ml (10-30); Salicylate < 3.0 mg/dl (3.0-30)
[2025-05-15 14:52] LABS: Magnesium 1.2 mg/dl (1.7-2.4)
--- NOTE | 2025-05-15 15:03 | CT Scan Report ---
CT SCAN OF THE BRAIN WITHOUT IV CONTRAST CLINICAL HISTORY: Altered mental status. COMPARISON STUDY: Head CT January 26, 2022. TECHNIQUE: Unenhanced axial CT scan of the brain was performed from the vertex to the skull base. A dose lowering technique was utilized adhering to the principles of ALARA. CT DOSE: 547.75 mGy.cm FINDINGS: Brain parenchyma: No acute intracranial hemorrhage, midline shift or mass effect is present. Victor-whi te matter differentiation is preserved. There are no extra-axial fluid collections. There are no find ings to suggest acute dural sinus thrombosis or acute territorial infarct. Ventricles, sulci, cisterns: There is no hydrocephalus. The basal cisterns are patent. Calvarium: Unremarkable. Sinuses and mastoids: Visualized portions of the left maxillary sinus are opacified. There is wall th ickening of the left maxillary sinus. The abnormality extends into the left nasal cavity. This may re present an antrochoanal polyp. Near complete opacification of the left ethmoid sinuses has increased since prior exam. There is also mucosal thickening with small air-fluid level within the left frontal sinus. Orbits: The bony orbits are grossly intact. IMPRESSION: 1. No acute intracranial findings. 2. Extensive left sinus opacification, partially imaged on this exam, which has progressed since prio r CT. ACT 112: Negative or not required by law. Electronically signed by: Dimitri Irwin M.D. 05/15/2025 3:01 PM
[2025-05-15] MEDS: SODIUM CHLORIDE 0.9% 1,000 ML IV ONE (15:19)
[2025-05-15] MEDS: POTASSIUM CHLORIDE / WTR 10 MEQ/100 ML PLCT IV SCH (15:19)
[2025-05-15] MEDS: cefTRIAXone SODIUM 2,000 MG/50 ML BAG IV STA (15:20)
[2025-05-15] MEDS: MAGNESIUM SULFATE / D5W 1 GM/100 ML BAG IV STA (15:37)
[2025-05-15] MEDS: POTASSIUM CHLORIDE 10 MEQ TABCR PO STA (15:37)
[2025-05-15] MEDS: THIAMINE HCL 200 MG in SODIUM CHLORIDE 0.9% 50 ML IV STA (15:37)
[2025-05-15] MEDS ORDERED: GABAPENTIN 600MG ALCOHOL WITHDRAWAL LOAD PO STA (16:54)
--- NOTE | 2025-05-15 16:58 | History & Physical Report ---
Date of Service May 15, 2025 Assessment & Plan (1) Alcohol intoxication: (2) Auditory hallucinations: (3) Hypokalemia: (4) Hypomagnesemia: Plan This is a 40 year old gentleman with past medical history of alcohol abuse and COPD who presented to the ED on 05/15/2025 for auditory hallucinations. While in the ED he was found to have a stable CBC. His potassium was low at 2.9, sodium mildly low at 133, Magnesium low at 1.2. TB elevated at 3.2. Mild elevation of AST at 118 and normal ALT of 40. Alcohol level was 256. Urine drug screen is pending. Head CT did reveal extensive left sinus opacification which has progressed from prior CT. CXR did reveal a loculated appearing effusion at left lung base w/ left basilar consolidation (previously seen in 2022 that appears chronic). He was given Potassium, Magnesium, and a dose of Rocephin while in the ED. #Auditory hallucinations new in onset in last 2-3 days w/ hearing voices & music. Denies psych hx. Chronic daily alcohol user w/ no change in frequency/amount of alcohol drinking. Denies Drug use Urine drug screen pending. Workup thus far negative for infection - per review of scans head CT shows previous sinus opacification & CXR shows previous left pleural effusion. Psych consulted, appreciate recommendations. #Alcohol intoxication endorses daily drinking of isamar liquor all day alc level 256 upon admission TB elevation of 3.2 & AST of 118 - likely secondary from alcohol use but will continue to trend. Start Librium 10mg TID + Gabapentin 600mg per protocol Ativan + AWSS prn for breakthrough symptoms Thiamine/Folic acid daily. AM CMP, B1, & folate levels #Hypokalemia/Hypomagnesemia K low on admission at 2.9 Mag low on admission at 1.2 s/p repletion of both IV KCl & IV mag Repeat AM BMP + Mag. DVT prophylaxis: SCD's Code: full Case discussed w/ Dr. Vazquez at time of admission. updated mother at bedside 05/15 History of Present Illness Primary Care Provider: Anu Geiger MD This is a 40 year old gentleman with past medical history of alcohol abuse and COPD who presented to the ED on 05/15/2025 for auditory hallucinations. Cheo was seen and examined with his mother at bedside. Patient/mother both provide history. Mother reports that over the last 2-3 days she has noticed an increase in hallucinations & odd behavior. She reports they were out at a restaurant/bar area and he wanted to go home to get his gun. Mother also reports that he was carrying an axe around as well. She reports that he does not have a psychiatric history. He Reports hx of marijuana use but denies recent use. He reports he drinks isamar liqour typically all day. He reports he has not changed his drinking habits recently. He denies taking any OTC. He reports his hallucinations are auditory and consist of voices & music. He reports he has not been sleeping well lately either. He denies suicidal and homicidal ideation. He denies feeling hopeless/depressed. He denies feeling anxious. He states his last drink was last night & he did not drink today prior to coming in. He denied CP, SOB, N/V, abdominal pain, lower extremity edema, dysuria/hematuria/urinary frequency. Mother reports he has a hx of empyema. While in the ED he was found to have a stable CBC. His potassium was low at 2.9, sodium mildly low at 133, Magnesium low at 1.2. TB elevated at 3.2. Mild elevation of AST at 118 and normal ALT of 40. Alcohol level was 256. Urine drug screen is pending. Head CT did reveal extensive left sinus opacification which has progressed from prior CT. CXR did reveal a loculated appearing effusion at left lung base w/ left basilar consolidation (previously seen in 2022 that appears chronic) Discussion took place w/ patient & his mother who confirm that he is a full code. Allergies Allergy/AdvReac Type Severity Reaction Status Date / Time oxycodone [From OxyContin] AdvReac Severe Paranoid Unverified 05/15/25 16:56 and itching Home Medications Medication Instructions Recorded Confirmed Type No Known Home Medications 05/15/25 05/15/25 History Past Med/Surg History Problem List (Updated 05/15/25 @ 17:07 by Tala Slaughter PA-C) Auditory hallucinations Hypomagnesemia (Acute) Hypokalemia (Acute) Alcohol intoxication (Acute) Acute alteration in mental status (Acute) COPD (chronic obstructive pulmonary disease) Encounter for examination following treatment at hospital Smoker Empyema (Acute) Elevated blood pressure reading Otitis media, unspecified, right ear Acute sinusitis Medical History Sepsis Gout Surgical History H/O chest tube placement No history of previous surgery Family History Denies family history of Ovarian cancer Prostate cancer Myocardial infarction Breast cancer Colorectal cancer Social History Smoking Status: Current every day smoker packs per day: 1.5; Hx Alcohol Use: No Hx Substance Use: Yes Last Used Substance: Days (ago) Preferred Language: Faroese Communication Ability: Effective Auto Damage Estimator Required: No Beliefs That Will Affect Care: None marital status: Single Current Living Situation: Alone current occupational status: employed Feels Safe at Home: Yes Dental Care, Regularly: No Seatbelt Use: sometimes Assistive Devices: None Physical Exam Physical Exam: General: no acute distress; non-toxic appearing; well-nourished; cooperative HEENT: normocephalic, atraumatic; no scleral icterus; PERRLA w/ EOMs intact; vision and hearing grossly intact Neck: trachea midline Skin: warm, dry without signs of tenting; no cyanosis; no rashes, bruising, lesions, or erythema noted CV: RRR; S1/S2 normal; no murmurs/rubs/gallops; pulses intact and symmetric at radial, DP, and PT Lungs: no acute respiratory distress; symmetrical chest wall expansion; clear breath sounds across all lung osorio w/o adventitious sounds; no wheezing ABD: Soft, NTP; BS present; no rebound/guarding; no distention MSK: no edema noted in the LEs b/l, nonerythematous Neuro: A&Ox3; normal mood and affect; fluent speech; no focal deficits; sensation grossly intact in the LEs b/l Results & Data Results & Data Vital Signs (Past 12 Hours) Vital Signs Temp Pulse Resp BP Pulse Ox O2 Del Method 05/15/25 16:30 82 17 119/75 95 05/15/25 16:00 81 16 120/82 98 05/15/25 16:00 82 16 120/82 98 05/15/25 15:44 82 07/08/25 15:40 82 18 116/78 97 05/15/25 13:20 37.1 C 100 H 18 131/85 96 Room Air PG Care Time/CCT Total # of Minutes Spent Total Time Spent with Patient: Total time spent is greater than 50% in coordination of care (as documented) at patient's floor/unit and/or counseling patient: Coding Level of Care Code 56393 INT INP/OBS CARE 2/55MIN Diagnoses Alcohol intoxication F10.929 Auditory hallucinations R44.0 Hypokalemia E87.6 Hypomagnesemia E83.42
[2025-05-15] MEDS: GABAPENTIN 800MG ALCOHOL WITHDRAWAL LOAD PO STA (17:10)
[2025-05-15] MEDS: GABAPENTIN 400 MG CAP PO ONE (17:10)
[2025-05-15] MEDS: GABAPENTIN 600 MG TAB PO ONE (17:15)
[2025-05-15] MEDS: SODIUM CHLORIDE 0.9% 1,000 ML IV SCH (17:18)
[2025-05-15 17:52] LABS: Amphetamines+Metham, Urine Neg (Neg); MDMA (Ecstacy), Urine Neg (Neg); Marijuana, Urine Pos (Neg)
[2025-05-15] MEDS ORDERED: POLYETHYLENE (MIRALAX) 17 GM PACK PO PRN (17:55)
[2025-05-15] MEDS ORDERED: MELATONIN 3 MG TAB PO PRN (17:55)
[2025-05-15] MEDS ORDERED: ONDANSETRON INJ 2 MG/ML 2 ML VIAL IV PRN (17:55)
[2025-05-15] MEDS: GABAPENTIN 100 MG CAP PO SCH (20:40)
[2025-05-15] MEDS ORDERED: GABAPENTIN 400 MG CAP PO SCH (23:00)
[2025-05-16 07:22] LABS: Hematocrit (blood only) 33.2 % (42.0-52.0); Hemoglobin 11.9 g/dl (14.0-18.0); Mean Corpuscular Hemoglobin 32.4 pg (25.0-34.0); Mean Corpuscular Volume 90.5 fL (80.0-100.0); Platelet Count 76 K/uL (130-400); RDW Standard Deviation 44.8 fL (36.4-46.3); Red Blood Count 3.67 M/uL (4.70-6.10); White Blood Count 4.10 K/ul (4.8-10.8)
[2025-05-16 07:31] LABS: Alanine Aminotransferase 32.0 U/L (7-52); Albumin Globulin Ratio 1.0 (0.9-2); Alkaline Phosphatase 71.0 U/L (34-104); Anion Gap 9.0 (3-11); Bilirubin,Total 3.2 mg/dl (0.2-1.0); Blood Urea Nitrogen 8.0 mg/dl (6-23); Calcium 8.2 mg/dl (8.6-10.3); Carbon Dioxide 29.0 mmol/L (21-32); Chloride 96.0 mmol/L (98-107); Creatinine Clr Calc Pharmacy 201.4 ml/min; Globulin 3.4 gm/dl (2.5-4.0); Glucose 102.0 mg/dl (70-99(Fasting)); Magnesium 1.3 mg/dl (1.7-2.4); Potassium 2.7 mmol/L (3.5-5.1); Sodium 134.0 mmol/L (136-145); Total Protein 6.9 gm/dl (6.0-8.3)
[2025-05-16] MEDS: POTASSIUM CHLORIDE / WTR 10 MEQ/100 ML PLCT IV SCH (08:50)
[2025-05-16] MEDS: MAGNESIUM SULFATE / D5W 1 GM/100 ML BAG IV SCH (08:50)
[2025-05-16] MEDS: THIAMINE HCL 100 MG TAB PO SCH (10:00)
[2025-05-16] MEDS: FOLIC ACID 1 MG TAB PO SCH (10:00)
[2025-05-16] MEDS: MULTIVITAMIN TAB PO SCH (10:00)
--- NOTE | 2025-05-16 12:58 | Psychiatric Consultation ---
Date of Consultation May 16, 2025 Impression / Recommendations Impression Diagnostically consistent with unspecified psychosis likely due to delirium from electrolyte abnormalities in setting of recent GI illness and/or from complicated alcohol withdrawal after going multiple days without drinking or substance-induced from alcohol intoxication. Encouragingly he is no longer experiencing any hallucinations and there is no evidence for psychosis, delusions nor paranoia today. No evidence for yesica. He's fully oriented and able to reality-test and reflect on bizarreness of recent events. He adamantly and convincingly denies SI and HI. Given symptom improvement, and no prior personal or family psychiatric history, no indication for psychiatric medication at this time. No acute safety concerns. Discussed alcohol use and encouraged consideration of naltrexone or other resou rces, and motivational interviewing done. He is in the precontemplative stage of change, declines any additional support or medication for his alcohol use. Overall, I spent a total of 60 minutes with this case including review of chart records, review of labwork, review of EKG QTc, direct evaluation of the patient at bedside, counseling the patient, discussion of the patient with the Nurse and with the hospitalist provider, discussion with the psychiatric liason during clinical rounds and documentation in the electronic health record. (1) Acute alteration in mental status: (2) Alcohol withdrawal delirium: Plan -No indication for psychiatric medication at this time -If hallucinations, delusions or paranoia were to re-occur would utilize ativan 1mg IV given likelihood of symptoms being due to alcohol withdrawal. If this were ineffective or seemed to worsen symptoms then could consider trial of olanzapine 5mg po HS prn for psychosis (if QTc remains <500ms) with awareness that this lowers seizure threshold. Psych History Identifying Data Cheo Birmingham is a 40 year old man with past medical history of alcohol use, tobacco use, empyema and COPD who presented to the ED on 05/15/2025 for auditory hallucinations and admitted medically for alcohol withdrawal and electrolyte abnormalities. Psychiatry consulted for recommendations for hallucinations. Chief Complaint "I starting hallucinating". History of Present Illness Nehemias reports no psychiatric history but developed new symptoms of auditory hallucinations, visual hallucinations and then delusions following a GI illness and not drinking alcohol for about 5 days. He recalls having intense vomiting and diarrhea followed by dehydration and days of poor sleep. He reports recent episodes of hallucinations, insomnia and unusual behavior in the context of alcohol cessation. He recently experienced a 4 to 5-day period of illness characterized by vomiting, diarrhea and dehydration during which he abstained from alcohol use. During this time he developed severe insomnia and was not sleeping for about 5 days. He began experiencing auditory hallucinations when trying to sleep describing hearing "2 people in my head talking to me at the same time" saying "random crap". These hallucinations progressed to include visual components with him reporting seeing movies play in his head when he closed his eyes. On subsequent nights, he experienced musical hallucinations, including familiar songs and classical piano pieces he has never heard before. As his symptoms progressed he experienced more vivid hallucinations. He describes an incident where he hallucinated his friend was using heroin in a car at the end of his driveway which led him to grab his gun and go to a hotel to confront her. This hallucination was not real but his actions in response to it were. Following this incident he reports another episode where he believe he needed to "fight the dogs of the bullock antonio". He found himself talking to a piece of firewood, believing it was teaching him to call wolves. Recalls that he sat in his yard for hours barking and growling like a bullock until going inside. He resumed drinking alcohol after recovering from his GI illness consuming 4-5 large glass of re isamar on the night of the hotel incident and calling to the wolves He states he can go a week at a time without drinking and that he feels in control of his alcohol use as he always stops drinking at 10pm. he doesn't feel his alcohol use is problematic or out of control. Reports his longest period of abstinence was 9 months about 10 years ago. He is not currently prescribed any psychiatric medications. Psychiatric review of symptoms noted Bole for no prior psychiatric history, no history of suicide attempts, nor psychiatric hospitalizations. Denies any current access to guns. No family history of schizophrenia and bipolar disorder psychiatric illnesses or psychiatric hospitalizations. Positive for recent auditory and visual hallucinations paranoia and insomnia. No history or current symptoms of depression and anxiety or yesica. Medical history notable for alcohol use and recent illness with vomiti ng,diarrhea and dehydration. Allergies Allergy/AdvReac Type Severity Reaction Status Date / Time oxycodone [From OxyContin] AdvReac Severe Paranoid Unverified 05/15/25 16:56 and itching Home Medications Medication Instructions Recorded Confirmed Type No Known Home Medications 05/15/25 05/15/25 History Patient History Medical History Sepsis Gout Surgical History H/O chest tube placement No history of previous surgery Family History Denies family history of Ovarian cancer Prostate cancer Myocardial infarction Breast cancer Colorectal cancer Social History Smoking Status: Current every day smoker Tobacco Type: Cigarettes packs per day: 1.5; Cigarettes Per Day: 1 pack; Second Hand Exposure: No; Do You Dip or Chew Tobacco: No; Hx Alcohol Use: Yes Alcohol type: hard liquor Hx Substance Use: Yes Last Used Substance: Unknown Preferred Language: Italian Communication Ability: Effective Return Agent Airport Required: No Beliefs That Will Affect Care: None marital status: Single Current Living Situation: Alone Current Living Situation Comment: lives in an apartment that is connected to his mother's home current occupational status: employed Feels Safe at Home: Yes Dental Care, Regularly: No Seatbelt Use: sometimes Assistive Devices: None Physical Exam Psychiatric: Orientation: alert and oriented x 3 Apperance: appropriately dressed and appropriately groomed Eye Contact: good eye contact Motor Behavior: no abnormal motor movements Speech: normal rate/rhythm/volume of speech Affect: euthymic affect Mood: no depressed mood and no anxious mood Thought Process: linear/logical thought process Thought Content: reality based without delusions Suicidal Thoughts: denies suicidal thoughts Homicidal Thoughts: denies homicidal thoughts Hallucinations: no auditory hallucinations and no visual hallucinations Cognition: recent memory grossly intact, remote memory grossly intact, attention grossly intact and language grossly intact Estimated Intelligence: consistent with education level Insight: + fair insight (about recent hallucinations and being able to reality- test these) Judgment: + limited judgement Vital Signs (Past 24 Hours): Last Vital Signs Temp 36.8 C 05/16/25 11:42 Pulse 78 05/16/25 11:42 Resp 18 05/16/25 11:42 BP 110/70 05/16/25 11:42 Pulse Ox 92 05/16/25 11:42 O2 Del Method Room Air 05/16/25 11:42 Results & Data (PSY) Medications Administered Chlordiazepoxide HCl (Chlordiazepoxide Hcl 10 Mg Cap) 10 mg PO TID [facility] Stop: 06/14/25 16:59 Last Admin: 05/16/25 10:27 Dose: 10 mg Documented By: Admin: 05/15/25 20:40 Dose: 10 mg Documented By: Admin: 05/15/25 17:15 Dose: 10 mg Documented By: CRISPIN Folic Acid (Folic Acid 1 Mg Tab) 1 mg PO QAM [facility] Stop: 06/15/25 08:59 Last Admin: 05/16/25 10:00 Dose: 1 mg Documented By: JAMES Sodium Chloride (Nss) 1,000 mls @ 80 mls/hr IV .[id number] [facility] Stop: 05/18/25 17:14 Last Admin: 05/16/25 05:02 Dose: 80 mls/hr Documented By: Infusion: 05/16/25 05:02 Dose: Infused Documented By: Admin: 05/15/25 17:18 Dose: 80 mls/hr Documented By: CRISPIN [facility]it[facility] ([facility]itamin Tab) [facility] [place]: 06/15/25 08:59 Last Admin: 05/16/25 10:00 Dose: 1 tab Documented By: JAMES Thiamine HCl (Thiamine Hcl 100 Mg Tab) [facility] Stop: 06/15/25 08:59 Last Admin: 05/16/25 10:00 Dose: 100 mg Documented By: JAMES Coding Level of Care Code 04730 IN/OBS CONSULT LVL 4,60M Diagnoses Acute alteration in mental status R41.82 Alcohol withdrawal delirium F10.931
[2025-05-16] MEDS ORDERED: GABAPENTIN 400 MG CAP PO SCH (13:00)
--- NOTE | 2025-05-16 13:49 | Hospitalist Progress Note ---
Date of Service May 16, 2025 Assessment & Plan (1) Alcohol intoxication: (2) Auditory hallucinations: (3) Hypokalemia: (4) Hypomagnesemia: Plan This is a 40 year old gentleman with past medical history of alcohol abuse and COPD who presented to the ED on 05/15/2025 for auditory hallucinations. While in the ED he was found to have a stable CBC. His potassium was low at 2.9, sodium mildly low at 133, Magnesium low at 1.2. TB elevated at 3.2. Mild elevation of AST at 118 and normal ALT of 40. Alcohol level was 256. Urine drug screen is pending. Head CT did reveal extensive left sinus opacification which has progressed from prior CT. CXR did reveal a loculated appearing effusion at left lung base w/ left basilar consolidation (previously seen in 2022 that appears chronic). He was given Potassium, Magnesium, and a dose of Rocephin while in the ED. #Auditory hallucinations new in onset in last 2-3 days w/ hearing voices & music. Denies psych hx. Chronic daily alcohol user w/ no change in frequency/amount of alcohol drinking. Denies Drug use Urine drug screen + for marijuana. Workup thus far negative for infection - per review of scans head CT shows previous sinus opacification & CXR shows previous left pleural effusion. Psych consulted --> discussed 05/16 - no indication for psychiatric medication @ this time. If re-occurs recommend Ativan 1gm IV. If ineffective then trial of Olanzapine 5mg PO HS prn for psychosis. Symptoms either related to GI illness or a 4 day period of sobriety prior to his hospital stay. #Alcohol intoxication endorses daily drinking of isamar liquor all day alc level 256 upon admission TB elevation of 3.2 & AST of 100 - likely secondary from alcohol use but will continue to trend. Start Librium 10mg TID + Gabapentin 600mg per protocol Ativan + AWSS prn for breakthrough symptoms Thiamine/Folic acid daily. AM CMP #Hypokalemia/Hypomagnesemia K low on admission at 2.9 --> low at 2.7 on 05/16 Mag low on admission at 1.2 --> low at 1.3 on 05/16 s/p repletion of both IV KCl & IV mag Repeat AM BMP + Mag. DVT prophylaxis: SCD's Code: full Admission and Anticipated Discharge Date Admission Date: May 15, 2025 Nicolas Grider seen and examined this morning. He denies any complaints today. He has not had any hallucinations since presenting to the hospital thus far. denies tremors or anxiety. Physical Exam Physical Exam: General: no acute distress; non-toxic appearing; well-nourished; cooperative HEENT: normocephalic, atraumatic; no scleral icterus; PERRLA w/ EOMs intact; vision and hearing grossly intact Neck: trachea midline Skin: warm, dry without signs of tenting; no cyanosis; no rashes, bruising, lesions, or erythema noted Lungs: no acute respiratory distress; symmetrical chest wall expansion MSK:no edema noted in the LEs b/l, nonerythematous Neuro: A&Ox3; normal mood and affect; fluent speech; no focal deficits Results & Data Results & Data Vital Signs (Past 12 Hours) Vital Signs Temp Pulse Pulse Resp BP Pulse Ox O2 Del Method 05/16/25 11:42 36.8 C 78 18 110/70 92 Room Air 05/16/25 07:45 36.9 C 79 18 125/75 94 Room Air 05/16/25 07:03 76 05/16/25 02:18 37.0 C 77 16 124/72 94 Room Air PG Care Time/CCT Total # of Minutes Spent Total Time Spent with Patient: Total time spent is greater than 50% in coordination of care (as documented) at patient's floor/unit and/or counseling patient: Coding Level of Care Code 04671 SUB INP/OBS CARE 2/35MIN Diagnoses Alcohol intoxication F10.929 Auditory hallucinations R44.0 Hypokalemia E87.6 Hypomagnesemia E83.42
--- NOTE | 2025-05-16 17:29 | Electrocardiogram Report ---
Test Reason : Blood Pressure : */* mmHG Vent. Rate : 78 BPM Atrial Rate : 78 BPM P-R Int : 200 ms QRS Dur : 96 ms QT Int : 424 ms P-R-T Axes : 60 8 34 degrees QTcB Int : 483 ms Normal sinus rhythm When compared with ECG of 26-Sep-2023 12:06, Vent. rate has decreased by 53 bpm T wave inversion no longer evident in Lateral leads Confirmed by John Elizabeth ([id number]) on 05/16/2025 5:29:19 PM Referred By: REFERRED SELF Confirmed By: John Elizabeth
[2025-05-17] MEDS: GABAPENTIN 600 MG TAB PO SCH (05:43)
[2025-05-17 09:23] LABS: Hematocrit (blood only) 35.8 % (42.0-52.0); Hemoglobin 12.2 g/dl (14.0-18.0); Mean Corpuscular Hemoglobin 31.5 pg (25.0-34.0); Mean Corpuscular Volume 92.5 fL (80.0-100.0); Platelet Count 91 K/uL (130-400); RDW Standard Deviation 47.4 fL (36.4-46.3); Red Blood Count 3.87 M/uL (4.70-6.10); White Blood Count 3.79 K/ul (4.8-10.8)
[2025-05-17 09:39] LABS: Alanine Aminotransferase 33.0 U/L (7-52); Albumin Globulin Ratio 1.0 (0.9-2); Alkaline Phosphatase 81.0 U/L (34-104); Anion Gap 7.0 (3-11); Bilirubin,Total 2.9 mg/dl (0.2-1.0); Blood Urea Nitrogen 4.0 mg/dl (6-23); Calcium 8.7 mg/dl (8.6-10.3); Carbon Dioxide 29.0 mmol/L (21-32); Chloride 99.0 mmol/L (98-107); Creatinine Clr Calc Pharmacy 201.4 ml/min; Globulin 3.6 gm/dl (2.5-4.0); Glucose 168.0 mg/dl (70-99(Fasting)); Magnesium 1.4 mg/dl (1.7-2.4); Potassium 3.0 mmol/L (3.5-5.1); Sodium 135.0 mmol/L (136-145); Total Protein 7.2 gm/dl (6.0-8.3)
[2025-05-17] MEDS: POTASSIUM CHLORIDE CRTAB 20 MEQ TABCR PO STA (09:52)
[2025-05-17] MEDS: MAGNESIUM SULFATE / D5W 1 GM/100 ML BAG IV SCH ×2 (10:26→19:59)
[2025-05-17] MEDS: POTASSIUM CHLORIDE CRTAB 20 MEQ TABCR PO SCH (11:56)
[2025-05-17] MEDS: LACTATED RINGER'S 1,000 ML IV SCH (15:24)
[2025-05-17 15:56] LABS: Anion Gap 6.0 (3-11); Blood Urea Nitrogen 4.0 mg/dl (6-23); Calcium 8.4 mg/dl (8.6-10.3); Carbon Dioxide 27.0 mmol/L (21-32); Chloride 101.0 mmol/L (98-107); Creatinine Clr Calc Pharmacy 201.4 ml/min; Glucose 118.0 mg/dl (70-99(Fasting)); Magnesium 1.9 mg/dl (1.7-2.4); Potassium 3.9 mmol/L (3.5-5.1); Sodium 134.0 mmol/L (136-145)
[2025-05-17] MEDS ORDERED: GABAPENTIN 400 MG CAP PO SCH (17:00)
--- NOTE | 2025-05-17 17:01 | Hospitalist Progress Note ---
Date of Service May 17, 2025 Assessment & Plan (1) Alcohol intoxication: (2) Auditory hallucinations: (3) Hypokalemia: (4) Hypomagnesemia: Plan This is a 40 year old gentleman with past medical history of alcohol abuse and COPD who presented to the ED on 05/15/2025 for auditory hallucinations. While in the ED he was found to have a stable CBC. His potassium was low at 2.9, sodium mildly low at 133, Magnesium low at 1.2. TB elevated at 3.2. Mild elevation of AST at 118 and normal ALT of 40. Alcohol level was 256. Urine drug screen is pending. Head CT did reveal extensive left sinus opacification which has progressed from prior CT. CXR did reveal a loculated appearing effusion at left lung base w/ left basilar consolidation (previously seen in 2022 that appears chronic). He was given Potassium, Magnesium, and a dose of Rocephin while in the ED. #Auditory hallucinations - resolved new in onset in last 2-3 days w/ hearing voices & music. Denies psych hx. Chronic daily alcohol user w/ no change in frequency/amount of alcohol drinking. Denies Drug use Urine drug screen + for marijuana. Workup thus far negative for infection - per review of scans head CT shows previous sinus opacification & CXR shows previous left pleural effusion. Psych consulted --> discussed 05/16 - no indication for psychiatric medication @ this time. If re-occurs recommend Ativan 1gm IV. If ineffective then trial of Olanzapine 5mg PO HS prn for psychosis. Symptoms either related to GI illness or a 4 day period of sobriety prior to his hospital stay. #Alcohol intoxication endorses daily drinking of isamar liquor all day alc level 256 upon admission LFTs downtrending - TB 2.9, AST 93 Became febrile + tachycardic in afternoon of 05/17 - likely related to withdrawal but will continue to monitor. Librium 10mg TID + Gabapentin 600mg per protocol Ativan + AWSS prn for breakthrough symptoms Thiamine/Folic acid daily. AM CMP #Hypokalemia/Hypomagnesemia s/p repletion of potassium & magnesium K now stable at 3.9 & Mag 1.9 #Gout flare start Colchicine 0.6mg once daily for ~5-7 days. Reassess symptoms in AM DVT prophylaxis: SCD's; encourage ambulation Code: full Admission and Anticipated Discharge Date Admission Date: May 15, 2025 Nicolas Grider seen and examined this morning & denied complaints. After re-eval this afternoon he was complaining of knee pain, reports he was having a gout flare. He became febrile this afternoon & did complain of chills. Physical Exam Physical Exam: General: no acute distress; non-toxic appearing; well-nourished; cooperative HEENT: normocephalic, atraumatic; no scleral icterus; PERRLA w/ EOMs intact; vision and hearing grossly intact Neck: trachea midline Skin: warm, dry without signs of tenting; no cyanosis; no rashes, bruising, lesions, or erythema noted Lungs: no acute respiratory distress; symmetrical chest wall expansion MSK:no edema noted in the LEs b/l, nonerythematous Neuro: A&Ox3; normal mood and affect; fluent speech; no focal deficits Results & Data Results & Data Vital Signs (Past 12 Hours) Vital Signs Temp Pulse Pulse Resp BP Pulse Ox O2 Del Method 05/17/25 14:27 38.2 C H 92 H 20 107/67 95 Room Air 05/17/25 11:26 37.6 C H 109 H 20 121/75 96 Room Air 05/17/25 08:06 36.9 C 85 20 112/78 93 Room Air 05/17/25 07:02 83 PG Care Time/CCT Total # of Minutes Spent Total Time Spent with Patient: Total time spent is greater than 50% in coordination of care (as documented) at patient's floor/unit and/or counseling patient: Coding Level of Care Code 37323 SUB INP/OBS CARE 2/35MIN Diagnoses Alcohol intoxication F10.929 Auditory hallucinations R44.0 Hypokalemia E87.6 Hypomagnesemia E83.42
[2025-05-17] MEDS: COLCHICINE 0.6 MG TAB PO ONE (17:20)
[2025-05-17] MEDS: ACETAMINOPHEN 500 MG TAB PO PRN (17:22)
[2025-05-18] MEDS: GABAPENTIN 400 MG CAP PO SCH (04:36)
[2025-05-18 06:32] LABS: Hematocrit (blood only) 35.5 % (42.0-52.0); Hemoglobin 11.8 g/dl (14.0-18.0); Mean Corpuscular Hemoglobin 31.8 pg (25.0-34.0); Mean Corpuscular Volume 95.7 fL (80.0-100.0); Platelet Count 108 K/uL (130-400); RDW Standard Deviation 50.2 fL (36.4-46.3); Red Blood Count 3.71 M/uL (4.70-6.10); White Blood Count 3.63 K/ul (4.8-10.8)
[2025-05-18 06:53] LABS: Alanine Aminotransferase 31.0 U/L (7-52); Albumin Globulin Ratio 1.0 (0.9-2); Alkaline Phosphatase 103.0 U/L (34-104); Anion Gap 6.0 (3-11); Bilirubin,Total 2.2 mg/dl (0.2-1.0); Blood Urea Nitrogen 5.0 mg/dl (6-23); Calcium 8.3 mg/dl (8.6-10.3); Carbon Dioxide 26.0 mmol/L (21-32); Chloride 105.0 mmol/L (98-107); Creatinine Clr Calc Pharmacy 221.9 ml/min; Globulin 3.4 gm/dl (2.5-4.0); Glucose 182.0 mg/dl (70-99(Fasting)); Magnesium 1.4 mg/dl (1.7-2.4); Potassium 3.2 mmol/L (3.5-5.1); Sodium 137.0 mmol/L (136-145); Total Protein 6.8 gm/dl (6.0-8.3)
[2025-05-18] MEDS: COLCHICINE 0.6 MG TAB PO SCH (08:11)
[2025-05-18] MEDS: POTASSIUM CHLORIDE CRTAB 20 MEQ TABCR PO STA (08:42)
[2025-05-18] MEDS: MAGNESIUM SULFATE / D5W 1 GM/100 ML BAG IV ONE (08:42)
[2025-05-18 09:58] LABS: Lyme Screen Rflx Confirmation Negative (Negative)
[2025-05-18 10:32] LABS: Procalcitonin 0.07 ng/ml (0-0.5)
[2025-05-18 10:43] LABS: Immature Granulocytes # (auto) 0.01 K/uL (0.01-0.20); Immature Granulocytes % (auto) 0.3 %
[2025-05-18 11:41] VITALS: BP 130/81; RESP 18; TEMP 98.1; O2SAT 96
--- NOTE | 2025-05-18 13:49 | CT Scan Report ---
CT OF THE CHEST WITHOUT IV CONTRAST CLINICAL HISTORY: Empyema follow up, febrile. COMPARISON STUDY: Chest CT September 29, 2023. Chest radiograph May 15, 2025. CT DOSE: 714.58 mGy.cm TECHNIQUE: Axial images of the chest were obtained without IV contrast. Images were reviewed in the axial, sagittal, and coronal planes. IV contrast was not administered for this examination. Automat ed exposure control was utilized for the study. A dose lowering technique was utilized adhering to t he principles of ALARA. FINDINGS: No enlarged axillary, mediastinal or hilar lymph nodes are present. Size of the heart is n ormal. There is no pericardial effusion. A small left pleural effusion has significantly decreased in size since CT of September 29, 2023. Left-sided pleural thickening is noted. In addition, there is a 10.7 x 2.9 cm peripheral subpleural elongated hypodensity within the left lower chest. There is assoc iated volume loss. There is no pneumothorax. No right pleural effusion is present. Mild emphysema is noted. A few subpleural densities within the right middle lobe measuring up to 1.3 cm are similar to prior exam. Scattered tree-in-bud nodules within the right lower lung on prior CT have resolved. Ther e is no consolidation to suggest pneumonia. Several old fractures within the thorax are present. Hepa tic steatosis is incidentally noted. The spleen is mildly enlarged. IMPRESSION: 1. No definite acute intrathoracic findings. No consolidation to suggest pneumonia. 2. Small left pleural effusion, significantly decreased in size since CT of September 29, 2023. Given pleural thickening, this is likely chronic adjacent elongated 10.7 x 2.9 cm subpleural hypodensity wi thin the left lower lobe with volume loss, also decreased since prior exam. This is likely chronic an d may represent atelectasis although is lower attenuation than expected and could represent chronic f luid. A chest CT in 6 months to ensure continued stability is recommended. 3. Mild emphysema. 4. A few subpleural densities within the right upper lobe which are similar to prior CT. These are li laith benign but can be assessed on follow-up CT. 5. Hepatic steatosis. 6. Mild splenomegaly. ACT 112: Negative or not required by law. Electronically signed by: Dimitri Irwin M.D. 05/18/2025 1:48 PM
--- NOTE | 2025-05-18 14:32 | Discharge Summary ---
Discharge Summary Date of Service May 18, 2025 Principal Dx & Hospital Course #1 = Principal Diagnosis (1) Alcohol intoxication: (2) Auditory hallucinations: (3) Hypokalemia: (4) Hypomagnesemia: Plan This is a 40 year old gentleman with past medical history of alcohol abuse and COPD who presented to the ED on 05/15/2025 for auditory hallucinations. While in the ED he was found to have a stable CBC. His potassium was low at 2.9, sodium mildly low at 133, Magnesium low at 1.2. TB elevated at 3.2. Mild elevation of AST at 118 and normal ALT of 40. Alcohol level was 256. Urine drug screen is pending. Head CT did reveal extensive left sinus opacification which has progressed from prior CT. CXR did reveal a loculated appearing effusion at left lung base w/ left basilar consolidation (previously seen in 2022 that appears chronic). He was given Potassium, Magnesium, and a dose of Rocephin while in the ED. #Auditory hallucinations - resolved new in onset in last 2-3 days w/ hearing voices & music. Denies psych hx. Urine drug screen + for marijuana. Workup thus far negative for infection - per review of scans head CT shows previous sinus opacification & CXR shows previous left pleural effusion. Psych consulted --> discussed 05/16 - no indication for psychiatric medication @ this time. Symptoms either related to GI illness or a 4 day period of sobriety prior to his hospital stay. #Alcohol intoxication endorses daily drinking of isamar liquor all day alc level 256 upon admission LFTs downtrending - TB 2.2, AST 78 per CM - patient is not interested in outpatient referrals to maintain sobriety. #Hypokalemia/Hypomagnesemia s/p repletion of potassium & magnesium daily while inpatient. Recommend multi-vitamin on discharge Follow up w/ PCP next week for repeat labs. #Gout flare Sent with 4 additional days of Colchicine for gout flare Consider allopurinol in oupatient setting - defer to PCP Updated mother @ bedside 05/18 Discharged to home 05/18 Admission HPI Per Admitting Provider This is a 40 year old gentleman with past medical history of alcohol abuse and COPD who presented to the ED on 05/15/2025 for auditory hallucinations. Cheo was seen and examined with his mother at bedside. Patient/mother both provide history. Mother reports that over the last 2-3 days she has noticed an increase in hallucinations & odd behavior. She reports they were out at a restaurant/bar area and he wanted to go home to get his gun. Mother also reports that he was carrying an axe around as well. She reports that he does not have a psychiatric history. He Reports hx of marijuana use but denies recent use. He reports he drinks isamar liqour typically all day. He reports he has not changed his drinking habits recently. He denies taking any OTC. He reports his hallucinations are auditory and consist of voices & music. He reports he has not been sleeping well lately either. He denies suicidal and homicidal ideation. He denies feeling hopeless/depressed. He denies feeling anxious. He states his last drink was last night & he did not drink today prior to coming in. He denied CP, SOB, N/V, abdominal pain, lower extremity edema, dysuria/hematuria/urinary frequency. Mother reports he has a hx of empyema. While in the ED he was found to have a stable CBC. His potassium was low at 2.9, sodium mildly low at 133, Magnesium low at 1.2. TB elevated at 3.2. Mild elevation of AST at 118 and normal ALT of 40. Alcohol level was 256. Urine drug screen is pending. Head CT did reveal extensive left sinus opacification which has progressed from prior CT. CXR did reveal a loculated appearing effusion at left lung base w/ left basilar consolidation (previously seen in 2022 that appears chronic) Discussion took place w/ patient & his mother who confirm that he is a full code. Discharge Exam Constitutional WD/WN, vitals as above Eyes PERRL, conjunctivae normal, anicteric sclerae Respiratory normal respiratory effort Psychiatric A+Ox3, euthymic affect Discharge Plan Discharge Items Patient Disposition: Home - Self-Care Reason For Visit: AUDITORY HALLUCINATIONS Discharge Diagnosis: Alcohol withdrawal, acute psychosis Condition on Discharge: Fair Activity: Resume your previous activity Non-emergency contact: Primary Care Provider Call non-emergency contact if: you have any medication questions, your symptoms worsen and your temperature is above 101 Follow-up/Referrals: Anu Geiger MD [Primary Care Provider] - Diet: Regular Addtl Attending Provider Instructions: Dada Andrew were recently hospitalized for experiencing auditory hallucinations at home. These have since resolved. You were evaluated by our psychiatrist who deemed it to be an acute psychosis event secondary to your GI illness or abstaining from alcohol prior to coming to the ED. You also experienced a gout flare in your ankle while you were here & treated appropriately. You had a repeat chest CT that did show your empyema is decreased in size. Please see recommendations below regarding your discharge. Please take Colchicine once daily for the next 4 days for treatment of your gout. Please take a multi vitamin supplement daily. Please follow up with your PCP next week to have your labs checked. A referral has been placed back to the [facility] for follow up. You will require a repeat chest CT in 6 months to reassess your empyema. The remainder of your medications can be resumed unless stated otherwise below. If you develop any severe fevers, chest pain, or shortness of breath please report back to the ED for further care. Best of luck! Tala Slaughter PA-C Pending Studies at Discharge: No Stand-Alone Forms: My [facility] SuppreMol, Smoking Cessation Medications and DC Order Prescriptions: No Action No Known Home Medications Discharge Orders: Discharge Order (Routine); Ordered 05/18/25 Ordered By: Tala Slaughter Admission Data Admit Date/Time: 05/15/25 16:48 Attending Provider: Aidan Pendleton Admit Provider: Lazaro Vazquez Primary Care Provider: Anu Geiger Other Providers: Lazaro Vazquez; Tawnya Macias; Ray Aguayo; Venice Pimentel; Jenifer Jain; Davion Oliveira; Donny Celis; Jaky Jimenez Hospital Stay Data Consultations 05/15/25 15:56 ED Decision to Admit Stat 05/15/25 17:55 Consult Psychiatry Routine Diagnostic Imagining Performed 05/15/25 14:31 CT head/brain wo con Stat 05/18/25 11:28 CT chest diagnostic wo con Urgent Pending Results Patient Have Any Pending Studies at Discharge: No Discharge Instructions Given to Patient (Per Discharging Provider) Mr. [place], Dada were recently hospitalized for experiencing auditory hallucinations at home. These have since resolved. You were evaluated by our psychiatrist who deemed it to be an acute psychosis event secondary to your GI illness or abstaining from alcohol prior to coming to the ED. You also experienced a gout flare in your ankle while you were here & treated appropriately. You had a repeat chest CT that did show your empyema is decreased in size. Please see recommendations below regarding your discharge. Please take Colchicine once daily for the next 4 days for treatment of your gout. Please take a multi vitamin supplement daily. Please follow up with your PCP next week to have your labs checked. A referral has been placed back to the [facility] for follow up. You will require a repeat chest CT in 6 months to reassess your empyema. The remainder of your medications can be resumed unless stated otherwise below. If you develop any severe fevers, chest pain, or shortness of breath please report back to the ED for further care. Best of luck! Tala Slaughter PA-C Total Time Total Time Spent Total Time Spent (In Minutes): 50 Total Time Includes: Examination of the Patient, Discharge Planning, Medication Reconciliation and Communication With Other Providers Coding Level of Care Code 82749 INP/OBS DISCH >30 MIN Diagnoses Alcohol intoxication F10.929 Auditory hallucinations R44.0 Hypokalemia E87.6 Hypomagnesemia E83.42
[2025-05-18 14:47] VITALS: PULSE 73
[2025-05-19] MEDS ORDERED: GABAPENTIN 400 MG CAP PO SCH (05:00)
[2025-05-19] MEDS ORDERED: GABAPENTIN 100 MG CAP PO SCH (05:00)
[2025-05-19 15:58] LABS: Marijuana Quant, GCMS Urine 21 ng/mL (<5)
== END 2025-05-18 15:26 | disposition home or self-care (01) | DRG 897 ==
LOC: SUATTDRO → ED 13:09 → 2N 16:48 → SUATTDRO 16:48 → 2N 17:43
DX: J44.9 Chronic obstructive pulmonary disease, unspecified; R44.0 Auditory hallucinations; F10.231 Alcohol dependence with withdrawal delirium; F17.210 Nicotine dependence, cigarettes, uncomplicated; E83.42 Hypomagnesemia; Z88.5 Allergy status to narcotic agent; E87.6 Hypokalemia; M10.9 Gout, unspecified